=== PATIENT | female | born 1930 | race Caucasian/White ===

== ENCOUNTER 2018-03-10 02:27 | Observation (INO) ==
[2018-03-10] MEDS ORDERED: Aspirin 81 MG TAB.CHEW PO STA (02:46)
--- NOTE | 2018-03-10 02:46 | Emergency Department Note ---
Disposition Clinical Impression: Dyspnea Disposition: Admitted As Inpatient Condition: Good General Adult HPI - General Stated complaint: Difficulty Breathing Time Seen by Provider: 03/10/18 02:30 Source: family Mode of arrival: EMS Limitations: no limitations Nursing Notes Reviewed: Yes Vital Signs Reviewed: Yes - History of Present Illness HPI Narrative: Patient was brought in by EMS for shortness of breath that started tonight. The family does not afford the patient the opportunity to answer any questions when I am in the room. Daughter states that her shortness breath started this evening. She has not been eating well lately and is not having any chest pain. 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 Review of Systems: As Per HPI Constitutional: Denies: fever, chills, weakness, weight change Eyes: Denies: eye pain, eye discharge, vision change ENT ED: Denies: ear pain, throat pain, dental pain, hearing loss, epistaxis, congestion, dysphagia Cardiovascular: Denies: chest pain, palpitations, dyspnea on exertion, edema, syncope Respiratory: Reports: as per HPI, dyspnea Gastrointestinal: Denies: abdominal pain, nausea, vomiting, diarrhea, constipation, hematemesis, melena, hematochezia Genitourinary: Denies: dysuria, frequency, hematuria, discharge Musculoskeletal: Denies: back pain, neck pain, arthralgia, myalgia Integumentary: Denies: rash, abrasion, lesions Neurological: Denies: headache, weakness, numbness, paresthesias, confusion, abnormal gait, vertigo Psychiatric: Denies: anxiety, depression, suicidal thoughts, homicidal thoughts , auditory hallucinations, visual hallucinations Endocrine: Denies: fatigue Hematological/Lymphatic: Denies: easy bleeding, easy bruising Past Medical History - Past Medical History Attestation: Yes The following information was validated with the patient. Source: patient, nursing notes reviewed Medical history: Reports: hyperlipidemia, hypertension, thyroid disease Physical Exam - General Limitations: no limitations General appearance: alert, in no apparent distress - Head Head exam: atraumatic, normocephalic, normal inspection - Eye Eye exam: Present: normal appearance, PERRL, EOMI - ENT ENT exam: normal exam, normal oropharynx, mucous membranes moist - Neck Neck exam: Present: normal inspection, full ROM, trachea midline - Chest Chest inspection: Present: normal inspection, symmetric chest wall rise - Respiratory Respiratory exam: Present: normal lung sounds bilaterally. Absent: respiratory distress, wheezes, stridor, accessory muscle use, prolonged expiratory phase - Cardiovascular Cardiovascular exam: Present: regular rate, normal rhythm, normal heart sounds - Abdominal Exam Abdominal exam: Present: soft, Non-Tender. Absent: tenderness, distention, guarding, rebound, rigidity - Extremities Exam Extremities exam: Present: normal inspection, full ROM. Absent: tenderness, pedal edema - Back Exam Back exam: Present: normal inspection - Neurological Exam Neurological exam: Present: alert, oriented X3 - Psychiatric Psychiatric exam: Present: normal affect, normal mood - Skin Skin exam: Present: warm, dry, intact Course Vital Signs Temperature 98.5 F 03/10/18 02:42 Pulse Rate 71 03/10/18 02:42 Respiratory Rate 20 03/10/18 02:42 Blood Pressure 170/86 03/10/18 02:42 O2 Sat by Pulse Oximetry 100 03/10/18 02:42 Temperature 98.0 F 03/10/18 05:04 Pulse Rate 69 03/10/18 05:04 Respiratory Rate 19 03/10/18 05:04 Blood Pressure 168/86 03/10/18 05:10 O2 Sat by Pulse Oximetry 96 03/10/18 05:04 Oxygen Delivery Oxygen Delivery Nasal Cannula Medical Decision Making - MDM Narrative Medical decision making narrative: I reviewed the patient's medication list Discussed with Dr. Sanchez patient will be admitted under his care - Lab Data Lab results reviewed: Yes I reviewed the patient's lab results. Result diagrams: 03/10/18 02:50 03/10/18 02:50 Lab Results 03/10/18 03/10/18 03/10/18 Range/Units 02:50 02:50 02:50 WBC 6.6 (4.3-11.1) K/mcL RBC 4.49 (3.82-4.97) M/mcL Hgb 13.6 (11.5-15.4) g/dL Hct 39.7 (35.3-44.9) % MCV 88.4 (83.0-100.0) fL MCH 30.3 (28.0-33.3) pg MCHC 34.3 (31.6-35.5) g/dL RDW 13.2 (11.5-14.5) % Plt Count 194 (140-400) K/mcL MPV 9.7 (9.4-12.4) fL Immature Gran % 0.3 (0-4) % Seg Neutrophils % 51.9 % Lymphocytes % 37.3 % Monocytes % 7.3 % Eosinophils % 2.6 % Basophils % 0.6 % Neutrophils # 3.4 (1.6-8.9) K/mcL Lymphocytes # 2.4 (0.6-4.6) K/mcL Monocytes # 0.5 (0.0-1.3) K/mcL Eosinophils # 0.2 (0.0-0.6) K/mcL Basophils # 0.0 (0.0-0.2) K/mcL PT 10.8 (9.4-12.1) Seconds INR 1.0 APTT 31.3 (26.0-36.0) Seconds Sodium 142 (136-145) mEq/L Potassium 3.7 (3.5-5.1) mEq/L Chloride 104 (98-107) mEq/L Carbon Dioxide 27 (23-29) mEq/L BUN 7 L (8-23) mg/dL Creatinine 0.87 (0.60-1.20) mg/dL Est GFR ( Amer) > 60 (> 60) Est GFR (Non-Af Amer) > 60 (> 60) BUN/Creatinine Ratio 8 (6-26) Glucose 144 H (70-105) mg/dL Calculated Osmolality 295 (280-300) Calcium 10.4 H (8.6-10.3) mg/dL Total Bilirubin 0.7 (0.3-1.0) mg/dL AST 10 L (13-39) Units/L ALT 7 (7-52) Units/L Alkaline Phosphatase 61 (34-104) Units/L Troponin I < 0.03 (< 0.04) ng/mL Serum Total Protein 6.6 (6.4-8.9) g/dL Albumin 3.8 (3.5-5.7) g/dL Globulin 2.8 (2.4-3.5) g/dL Albumin/Globulin Ratio 1.4 (1.1-2.2) - Radiology Data Radiology results reviewed: Yes I reviewed the patient's radiology results. - EKG Data EKG #1 EKG attestation: Yes I reviewed and interpreted this EKG. EKG results narrative: EKG shows a probable sinus rhythm with a lot of artifact from a spinal stimulator. Rate is 70 bpm LA interval is 145 ms. QRS duration 85 ms. QTc interval 419 ms QTc interval 440 ms R axis -[address] elevation appreciated
[2018-03-10] MEDS ORDERED: 0.9 % Sodium Chloride 1,000 ML IVC SCH (03:00)
[2018-03-10 03:04] LABS: Basophils % 0.6 %; Eosinophils # 0.2 K/mcL (0.0-0.6); Eosinophils % 2.6 %; Hematocrit 39.7 % (35.3-44.9); Hemoglobin 13.6 g/dL (11.5-15.4); Immature Granulocytes % 0.3 % (0-4); Lymphocytes # 2.4 K/mcL (0.6-4.6); Lymphocytes % 37.3 %; Mean Corpuscular HGB Conc 34.3 g/dL (31.6-35.5); Mean Corpuscular Hemoglobin 30.3 pg (28.0-33.3); Mean Corpuscular Volume 88.4 fL (83.0-100.0); Mean Platelet Volume 9.7 fL (9.4-12.4); Monocytes # 0.5 K/mcL (0.0-1.3); Monocytes % 7.3 %; Neutrophils # 3.4 K/mcL (1.6-8.9); Platelet Count 194 K/mcL (140-400); Red Blood Count 4.49 M/mcL (3.82-4.97); Red Cell Distribution Width 13.2 % (11.5-14.5); Segmented Neutrophils % 51.9 %
[2018-03-10 03:08] LABS: Prothrombin Time 10.8 Seconds (9.4-12.1)
[2018-03-10 03:11] LABS: Activated Partial Thrombo Time 31.3 Seconds (26.0-36.0)
[2018-03-10 03:19] LABS: Alanine Aminotransferase 7 Units/L (7-52); Albumin 3.8 g/dL (3.5-5.7); Albumin/Globulin Ratio 1.4 (1.1-2.2); Alkaline Phosphatase 61 Units/L (34-104); Aspartate Amino Transferase 10 Units/L (13-39); BUN/Creatinine Ratio 8 (6-26); Bilirubin,Total 0.7 mg/dL (0.3-1.0); Blood Urea Nitrogen 7 mg/dL (8-23); Calcium 10.4 mg/dL (8.6-10.3); Carbon Dioxide 27 mEq/L (23-29); Chloride 104 mEq/L (98-107); Globulin 2.8 g/dL (2.4-3.5); Glucose 144 mg/dL (70-105); Osmolality,Calculated 295 (280-300); Potassium 3.7 mEq/L (3.5-5.1); Sodium 142 mEq/L (136-145); Total Protein 6.6 g/dL (6.4-8.9); Troponin I < 0.03 ng/mL (< 0.04); eGFR For Non-African Americans > 60 (> 60)
[2018-03-10] MEDS ORDERED: Naloxone 0.4 MG/ML INJ IVP PRN (04:47)
[2018-03-10] MEDS ORDERED: Ondansetron 4 MG/2 ML VIAL IVP PRN (06:19)
[2018-03-10] MEDS ORDERED: cloNIDine HCl 0.1 MG TABLET PO PRN (08:01)
[2018-03-10] MEDS ORDERED: Nitroglycerin 0.4 MG TAB.SUBL SL PRN (08:03)
[2018-03-10] MEDS: Gabapentin 400 MG CAPSULE PO SCH ×2 (08:15→20:32)
[2018-03-10] MEDS: amLODIPine 5 MG TABLET PO SCH (08:15)
[2018-03-10] MEDS: 0.9 % Sodium Chloride 1,000 ML IVC SCH (11:35)
--- NOTE | 2018-03-10 12:07 | Internal Med History&Physical ---
Date of Encounter: 03/10/18 Time of Encounter: 09:20 Assessment and Plan (1) Dyspnea Current visit: Yes Status: Acute This is atypical and could be coronary disease. It is enough so that we will try to have Dr. Mckinney, her boom conveyor operator, see her before discharge. Further management will be based on his opinion. I think she should have stress test at some point. Qualifiers: Dyspnea type: unspecified Qualified Code(s): R06.00 - Dyspnea, unspecified (2) Hypertension Current visit: Yes Status: Acute This is mostly controlled but at time she has been slightly hypertensive. Will follow. Qualifiers: Hypertension type: essential hypertension Qualified Code(s): I10 - Essential (primary) hypertension (3) Hyperlipidemia Current visit: Yes Status: Acute We will continue home regimen. Qualifiers: Hyperlipidemia type: unspecified Qualified Code(s): E78.5 - Hyperlipidemia , unspecified (4) DVT prophylaxis Current visit: Yes Status: Acute Will treat her with Lovenox, while here only. (5) Hypothyroidism Current visit: Yes Status: Acute Clinically euthyroid and will continue home regimen. Qualifiers: Hypothyroidism type: unspecified Qualified Code(s): E03.9 - Hypothyroidism , unspecified Internal Medicine - H&P: HPI Chief complaint: Shortness of breath Admitted From: Home Plans for Post Hospital Care: Home History of present illness: Ms. Reed is a 87 year old female with history of dizziness, irregularly for the last couple of weeks. She is more concerned that she has progressive episodes of chest tightness that feels like someone has a bag over her head and is not able to breathe. She is not complaining of chest pain or palpitations, fevers chills or sweats, other changes. Early this morning, this began at home and then she had another episode while here. When offered nitroglycerin she stated that her symptoms had resolved. EKG at that time was unremarkable. Troponins have been negative. Her last troponin should be back anytime. She has minimal smoking history, less than one half pack per day and not for decades. She was around secondary smoke with her . She has hypertension and hyperlipidemia but no other cardiac risk factors, other than age. She has diminished memory and so history is somewhat unreliable but lives with her daughter who helps with history. Onset of current episode was severe and occurred in the middle of the night, approximately 2 AM. She is not known to have diaphoresis but home oxygen left over from her was not helpful in relieving her symptoms. Past medical history as noted below. She has 18 years of hypothyroidism. This was apparently checked about a week ago by her primary physician and was found to be normal. Past Med Surg Social Fam HX - Past Medical History Medical history: hyperlipidemia, hypertension, thyroid disease Additional medical history: Non-Hodgkin's lymphoma 7 years remission Psychiatric history: no psych history - Past Surgical History Surgical History: hysterectomy, other Additional surgical history: Spinal Stimulator in L Hip - Social History Smoking Status: Never smoker Alcohol use: none Drug use: none - Family History Mother Living Status: Hx Family Musculoskeletal Disorders: Yes Father Living Status: Hx Family Cardiac Disorders: Yes Internal Medicine - H&P: Meds Amlodipine Besylate 2.5 mg PO DAILY 03/10/18 [History] Gabapentin [Neurontin] 400 mg PO BID 03/10/18 [History] Levothyroxine [Synthroid] 75 mcg PO DAILY 03/10/18 [History] Lovastatin 40 mg PO DAILY 03/10/18 [History] 3 Allergy/AdvReac Type Severity Reaction Status Date / Time Penicillins [PCN] Allergy Hives Verified 03/10/18 02:40 All Systems PM: The patient wears eyeglasses. She has oxygen which is from her , which she occasionally uses one dyspneic, at home. Her had lung problems and about 5 years ago. Patient has no complaint of chest discomfort, dyspnea, orthopnea, breathing problems, palpitations, nausea or vomiting, constipation or diarrhea, other changes in bowel habits, heartburn, difficulty with urination, kidney problems or kidney stones, fevers chills or sweats, rash or itching, seizures, headache or lightheadedness, heat or cold intolerance, blood problems or anemia, or other new complaints, except as mentioned above. Review of systems is otherwise negative. - Constitutional Vitals: Temp Pulse Resp BP Pulse Ox 98.0 F 68 17 124/60 98 03/10/18 11:50 03/10/18 11:50 03/10/18 11:50 03/10/18 11:50 03/10/18 11:50 Exam: Examination: (Except as mentioned above): General: In no apparent distress, alert and oriented 3. She is on 1 L by nasal cannula of oxygen. Head: Atraumatic and normocephalic. Eyes: Extraocular muscles are intact, pupils equal round and reactive to light and accommodation. Sclerae anicteric. Ears: External ears are normal to inspection and hearing is grossly normal. Nose: Patent without lesion noted. Mouth: No intraoral lesions seen. Dentition is unremarkable. Neck: Supple with trachea midline. There is no thyromegaly or adenopathy and carotids are 2+ without bruit heard. Respiratory: No use of accessory muscles. Lungs are clear throughout. Normal airflow. Cardiovascular: Regular rate and rhythm without murmur appreciated. Abdomen: Bowel sounds are normal. No hepatosplenomegaly masses or tenderness. Obese and therefore difficult to palpate deeply. Extremities: No cyanosis clubbing or edema. Neurological: A and O 3. Cranial nerves II through XII are intact. No focal deficits and no abnormal movements or postures. Skin: Warm and non-diaphoretic with no lesions noted. Breasts, pelvic and rectal: Not examined. Internal Med - H&P Results - Labs CBC & Chem 7: 03/10/18 02:50 03/10/18 02:50 Labs: Cardiac Enzymes 03/10/18 03/10/18 Range/Units 06:19 09:53 Troponin I < 0.03 < 0.03 (< 0.04) ng/mL
[2018-03-10] MEDS ORDERED: *HR* Enoxaparin 40 MG/0.4 ML SYRINGE SQ SCH (16:00)
[2018-03-11] MEDS: Gabapentin 400 MG CAPSULE PO SCH (09:25)
[2018-03-11] MEDS: amLODIPine 5 MG TABLET PO SCH (09:25)
--- NOTE | 2018-03-11 13:31 | Discharge Summary ---
Addendum entered and electronically signed by Angus Sanchez MD 03/11/18 15:27: Daughter had questions about taking the patient home. She was concerned because she seems to have more memory difficulties. I explained that we have found no reason for this other than progressive dementia. I told the daughter she suddenly gets worse to bring her back to the emergency room. I explained again to the daughter about nitroglycerin and use thereof and nursing no stream force this. Addendum entered and electronically signed by Angus Sanchez MD 03/11/18 14 :22: I have personally performed a face to face evaluation on this patient. I have reviewed and agree with the care plan. History and Exam by me shows: Patient is without recurrence of chest discomfort or dyspnea overnight. Plan is to follow with Dr. Mckinney, cardiology, after discharge. She is to have a 24-hour or 48-hour Holter as well as a chemical stress test (because of her left hip pain). She continues to have memory issues. Discussed care with other providers and/or nursing. Patient has no complaint of chest discomfort, dyspnea, orthopnea, palpitations, nausea or vomiting, constipation or diarrhea, other changes in bowel habits, difficulty with urination, rash or itching, or other new complaints, except as mentioned above. Review of systems is otherwise negative. Examination: (Except as mentioned above): General: In no apparent distress. Alert and oriented 3. Nondiaphoretic. Head: Atraumatic and normocephalic. Respiratory: No use of accessory muscles. Lungs are clear throughout. Normal airflow. Cardiovascular: Regular rate and rhythm without murmur appreciated. Abdomen: Bowel sounds are normal. No hepatosplenomegaly mass or tenderness appreciated. Extremities: No cyanosis clubbing or edema. Skin: Warm and non-diaphoretic with no new lesions noted. Family and patient understand the need to use nitroglycerin and to call squad if not relieved by third dose, every 5 minutes. Original Note: - NOTES TO OUTPATIENT PROVIDER Notes to Outpatient Provider: to have chemical stress test and holter monitor as out patient. will follow up with trade specialist, Dr Mckinney. Date of Encounter: 03/11/18 Time of Encounter: 13:28 - Discharge Diagnosis (1) Dyspnea Priority: Primary Status: Acute Comments: stable. Will have chemical stress test and Holter monitor as outpatient. To follow up with cardiology, Dr. Mckinney. Qualifiers: Dyspnea type: unspecified Qualified Code(s): R06.00 - Dyspnea, unspecified (2) Hypertension Priority: Secondary Status: Acute Comments: Controlled with current medications. Follow up with PCP. Qualifiers: Hypertension type: essential hypertension Qualified Code(s): I10 - Essential (primary) hypertension (3) Hypothyroidism Priority: Secondary Status: Acute Comments: Continue current medication. Follow up with PCP. Qualifiers: Hypothyroidism type: unspecified Qualified Code(s): E03.9 - Hypothyroidism, unspecified Hospital course: Ms. Reed is a 87 year old female discharging to home after being admitted with difficulty breathing. Patient has been stable. To receive chemical stress test and Holter monitor as outpatient.. To follow up with cardiology, Dr. Mckinney. Discharge discussed with: patient, family, nurse, social work - Time Spent with Patient Total time spent providing and/or coordinating discharge services: Less than 30 minutes - Discharge Medications Home Medications: Amlodipine Besylate 2.5 mg PO DAILY 03/10/18 [History] Gabapentin [Neurontin] 400 mg PO BID 03/10/18 [History] Levothyroxine [Synthroid] 75 mcg PO DAILY 03/10/18 [History] Lovastatin 40 mg PO DAILY 03/10/18 [History] Nitroglycerin 0.4 mg SL Q5MIN PRN #25 tab.subl 03/11/18 [Rx] Allergies/Adverse Reactions: Allergy/AdvReac Type Severity Reaction Status Date / Time Penicillins [PCN] Allergy Hives Verified 03/10/18 02:40 Date of admission: 03/10/18 04:25 Primary care physician: Nikhil Jeffers Consults: 03/10/18 12:06 Consult to Cardiology [CONS] Routine Comment: Consulting Provider: Cardiology Maura Reason for Consult: Dyspnea - Cardiac Equivalet? Call Completed: No Discharging clinician: Angus Sanchez Anticipated date of discharge: 03/11/18 - Constitutional Vitals: Temp Pulse Resp BP Pulse Ox 98.7 F 63 18 120/57 95 03/11/18 07:00 03/11/18 07:00 03/11/18 07:00 03/11/18 07:00 03/11/18 07:00 - Patient Status Disposition: Home, Self-Care Condition: Good Functional capacity at discharge: uses cane/walker Overall status at discharge: patient is progressing back to baseline - Discharge Instructions Forms: ED Satisfaction Letter - Diet and Activity Activity: as per physical therapy Diet: advance to your usual diet
--- NOTE | 2018-03-11 13:51 | Electrocardiograph Report ---
[address] [address] Test Date: 2018-03-10 Pat Name: Milena Reed Department: 2001 Room: 112 Gender: F Insurance Case Manager: : 1930 Requested By: Angus Sanchez Order Number: [id number] Xiomara MD: Alma Delia Manzo Measurements Intervals [place] Rate: 72 P: 165 IN: 278 QRS: -20 QRSD: 86 T: 6 QT: 412 QTc: 436 Interpretive Statements ARTIFACT LIMITS INTERPRETATION Electronically Signed On 03-11-2018 13:49:47 EDT by Alma Delia Manzo
--- NOTE | 2018-03-11 14:01 | Electrocardiograph Report ---
[place] [address] Test Date: 2018-03-10 Pat Name: Milena Reed Department: 2000 Room: 112 Gender: F Peace Officer: : 1930 Requested By: Thiago Call Order Number: [id number] Xiomara MD: Alma Delia Manzo Measurements Intervals [place] Rate: 70 P: -18 [place]: 145 QRS: -29 QRSD: 85 T: -14 QT: 419 QTc: 440 Interpretive Statements BASELINE ARTIFACT LIMITS INTERPRETATION Electronically Signed On 03-11-2018 14:00:35 EDT by Alma Delia Manzo
[2018-03-11 14:02] VITALS: BP 125/63
[2018-03-11] MEDS: 0.9 % Sodium Chloride 1,000 ML IVC SCH (14:27)
[2018-03-11] MEDS ORDERED: 0.9 % Sodium Chloride 1,000 ML IV.SOLN IV ONE (15:40)
[2018-03-11] MEDS ORDERED: Gabapentin 400 MG CAPSULE PO ONE (15:40)
[2018-03-11] MEDS ORDERED: amLODIPine 5 MG TABLET PO ONE (15:40)
== END 2018-03-11 15:41 | disposition home or self-care (01) ==
LOC: EMEROOGRE 02:27 → INPGRE 02:27

== ENCOUNTER 2018-03-25 19:20 | Observation (INO) ==
[2018-03-25] MEDS ORDERED: Nitroglycerin 1 INCH/GM PACKET TP ONE (19:40)
--- NOTE | 2018-03-25 19:43 | Emergency Department Note ---
Disposition Clinical Impression: Shortness of breath Chest pain Qualifiers: Chest pain type: unspecified Qualified Code(s): R07.9 - Chest pain, unspecified Disposition: Admitted As Inpatient Condition: Good Referrals: NONE,PCP [Non-Partnered Physician] - Chest Pain HPI - General Stated Complaint: difficulty breathing Time Seen by Provider: 03/25/18 19:27 Source: patient, family (Daughter) Mode of arrival: EMS Limitations: no limitations Vital Signs Reviewed: Yes Nursing Notes Reviewed: Yes - History of Present Illness HPI Narrative: 87-year-old female percents for evaluation of tightness to her chest. Patient felt this tightness come on earlier this afternoon. She was given oxygen with no significant improvement, so a life squad was called. Patient was recently hospitalized for similar symptoms 2 weeks ago and had a negative evaluation at that time. A stress test was ordered but was never performed at time of admiss ion or since discharge. Patient has no known coronary artery disease. Patient was given oxygen from her who had lung issues that she does not require all the time. She has no history of lung disorder. She denies any history of congestive heart failure. - Related Data Home Medications Medication Instructions Recorded Confirmed Amlodipine Besylate 2.5 mg PO DAILY 03/10/18 03/25/18 Gabapentin [Neurontin] 400 mg PO BID 03/10/18 03/25/18 Levothyroxine [Synthroid] 75 mcg PO DAILY 03/10/18 03/25/18 Lovastatin 40 mg PO DAILY 03/10/18 03/25/18 Previous Rx's Medication Instructions Recorded Nitroglycerin 0.4 mg SL Q5MIN PRN #25 tab.subl 03/11/18 Allergies Allergy/AdvReac Type Severity Reaction Status Date / Time Penicillins [PCN] Allergy Hives Verified 03/25/18 19:38 Review of Systems: Constitutional: [Negative for fever and chills.] HENT: [Negative for congestion.] Eyes: [Negative for discharge.] Respiratory: see History of present illness Cardiovascular: See history of present illness Gastrointestinal: [Negative for nausea, vomiting, abdominal pain and diarrhea.] Endocrine: [Negative for excessive thirst,urination] Genitourinary: [Negative for dysuria and frequency.] Musculoskeletal: [Negative for myalgias and arthralgias.] Skin: [Negative for rash.] Neurological: [Negative for dizziness, localized weakness and headaches.] Psychiatric/Behavioral: [Negative for nervous/anxious.] All other systems reviewed and are negative. Chest Pain PMH - Past Medical History Medical history: Reports: hyperlipidemia, hypertension, thyroid disease Surgical history: Reports: hysterectomy, other Psychiatric history: Reports: no psych history - Social History Smoking Status: Never smoker Alcohol use: Reports: none Drug use: Reports: none Physical Exam Constitutional: Patient is [alert], elderly, appears somewhat mentally slowed, and cooperative. . The patient appears [nontoxic, and does not appear acutely ill]. HENT: Head: Normocephalic and atraumatic. Right Ear: External ear normal. Left Ear: External ear normal. Nose: Nose normal. Mouth/Throat: Oropharynx is clear and mucous membranes show [good hydration.] Eyes: Conjunctivae and EOM are normal. Pupils are equal, round, and reactive to light. Right eye exhibits [no] discharge. Left eye exhibits [no] discharge. Neck: Trachea is midline, normal range of motion and [phonation normal]. Neck supple. Cardiovascular: [Regular rhythm], S1 normal, S2 normal, normal heart sounds and intact distal pulses. Exam reveals no gallop and no friction rub. No murmur heard. [Capillary refill is brisk.] [Peripheral pulses are 2+] Pulmonary/Chest: Effort [normal] No stridor. [No] tachypnea. [No] respiratory distress. There are [no] decreased breath sounds. [There no wheezes, no rhonchi, or rales.] Abdominal: Soft. [Bowel sounds are normal]. There exhibits [no] distension and [no] mass. There is no hepatosplenomegaly. There is [no tenderness], [no] CVA tenderness. There is [no rigidity, no rebound, no guarding]. Musculoskeletal: Normal range of motion of uninvolved extremities. There exhibits [no edema]. [ ] Neurological: Patient is alert. Patient displays no atrophy and no tremor. No cranial nerve deficit and exhibits normal muscle tone. Coordination normal grossly. Skin: Skin is warm and dry. No erythema. No rash noted. Psychiatric: Patient has a depressed mood and affect Course Course Narrative: Patient had mission 2 weeks ago for similar symptoms but did not get follow-up stress test as originally planned. Her symptom complex again has reoccurred without any objective evidence today of cardiac disease. She will be again ruled out for cardiac disease and then stress testing and I think there is an element of dementia with paranoid ideations and anxiety that may be precipitating these episodes. Patient was discussed with hospitalist Dr. Jurado who agrees with admission Vital Signs Temperature 98.7 F 03/25/18 19:39 Pulse Rate 66 03/25/18 19:39 Respiratory Rate 20 03/25/18 19:39 Blood Pressure 154/77 03/25/18 19:39 O2 Sat by Pulse Oximetry 99 03/25/18 19:39 Temperature 98.7 F 03/25/18 19:39 Pulse Rate 56 03/25/18 20:43 Respiratory Rate 14 03/25/18 20:43 Blood Pressure 136/78 03/25/18 20:43 O2 Sat by Pulse Oximetry 98 03/25/18 20:43 Oxygen Delivery Oxygen Delivery Nasal Cannula Chest Pain - MDM Narrative Medical decision making narrative: Initial differential diagnosis would include ACUTE CORONARY SYNDROME, THORACIC AORTIC DISSECTION, PNEUMOTHORAX, PNEUMONIA, HEMOTHORAX, ESOPHAGEAL RUPTURE, OR PERICARDIAL TAMPONADE, and pulmonary embolus. Also, there is no evidence of sepsis or toxicity, thus I consider the discharge disposition reasonable. I have discussed the diagnosis and risks, and we agree with discharging home to follow-up with their primary doctor and returning for any worsening or new symptoms develop. - Lab Data Lab results reviewed: Yes I reviewed the patient's lab results. Result diagrams: 03/25/18 19:59 03/25/18 19:59 Lab Results 03/25/18 03/25/18 03/25/18 Range/Units 19:59 19:59 19:59 WBC 8.0 (4.3-11.1) K/mcL RBC 4.47 (3.82-4.97) M/mcL Hgb 13.6 (11.5-15.4) g/dL Hct 38.9 (35.3-44.9) % MCV 87.0 (83.0-100.0) fL MCH 30.4 (28.0-33.3) pg MCHC 35.0 (31.6-35.5) g/dL RDW 13.0 (11.5-14.5) % Plt Count 206 (140-400) K/mcL MPV 9.8 (9.4-12.4) fL Immature Gran % 0.4 (0-4) % Seg Neutrophils % 58.1 % Lymphocytes % 30.6 % Monocytes % 8.0 % Eosinophils % 2.1 % Basophils % 0.8 % Neutrophils # 4.6 (1.6-8.9) K/mcL Lymphocytes # 2.4 (0.6-4.6) K/mcL Monocytes # 0.6 (0.0-1.3) K/mcL Eosinophils # 0.2 (0.0-0.6) K/mcL Basophils # 0.1 (0.0-0.2) K/mcL PT 10.8 (9.4-12.1) Seconds INR 1.0 APTT 28.7 (26.0-36.0) Seconds Sodium 138 (136-145) mEq/L Potassium 3.1 L (3.5-5.1) mEq/L Chloride 101 (98-107) mEq/L Carbon Dioxide 25 (23-29) mEq/L BUN 11 (8-23) mg/dL Creatinine 0.91 (0.60-1.20) mg/dL Est GFR ( Amer) > 60 (> 60) Est GFR (Non-Af Amer) 59 L (> 60) BUN/Creatinine Ratio 12 (6-26) Glucose 125 H (70-105) mg/dL Calculated Osmolality 287 (280-300) Calcium 10.2 (8.6-10.3) mg/dL Troponin I < 0.03 (< 0.04) ng/mL B-Natriuretic Peptide (Less than 100) pg/mL 03/25/18 Range/Units 19:59 WBC (4.3-11.1) K/mcL RBC (3.82-4.97) M/mcL Hgb (11.5-15.4) g/dL Hct (35.3-44.9) % MCV (83.0-100.0) fL MCH (28.0-33.3) pg MCHC (31.6-35.5) g/dL RDW (11.5-14.5) % Plt Count (140-400) K/mcL MPV (9.4-12.4) fL Immature Gran % (0-4) % Seg Neutrophils % % Lymphocytes % % Monocytes % % Eosinophils % % Basophils % % Neutrophils # (1.6-8.9) K/mcL Lymphocytes # (0.6-4.6) K/mcL Monocytes # (0.0-1.3) K/mcL Eosinophils # (0.0-0.6) K/mcL Basophils # (0.0-0.2) K/mcL PT (9.4-12.1) Seconds INR APTT (26.0-36.0) Seconds Sodium (136-145) mEq/L Potassium (3.5-5.1) mEq/L Chloride (98-107) mEq/L Carbon Dioxide (23-29) mEq/L BUN (8-23) mg/dL Creatinine (0.60-1.20) mg/dL Est GFR ( Amer) (> 60) Est GFR (Non-Af Amer) (> 60) BUN/Creatinine Ratio (6-26) Glucose (70-105) mg/dL Calculated Osmolality (280-300) Calcium (8.6-10.3) mg/dL Troponin I (< 0.04) ng/mL B-Natriuretic Peptide 46 (Less than 100) pg/mL - Radiology Data Radiology results reviewed: Yes I reviewed the patient's radiology results. FINDINGS: Neurostimulator leads are identified terminating in the upper thoracic spine. Diffuse osteopenia. No focal consolidation, pleural effusion or pneumothorax. The cardiomediastinal silhouette is stable. No overt pulmonary edema. The osseous structures are stable. Emphysematous changes. XR/XR chest 2V IMPRESSION: No new acute cardiopulmonary findings. Stable exam. - EKG Data EKG attestation: Yes I reviewed and interpreted this EKG. EKG shows normal: sinus rhythm, axis, intervals, QRS complexes, ST-T waves Interpretation: normal EKG Heart Score - Score History: Slightly Suspicious EKG: Normal Age: Greater than 65 Risk Factors: 1-2 risk factors Troponin: Less than normal limit HEART Score Total: 3
[2018-03-25] MEDS ORDERED: *HR* LORazepam 2 MG/ML VIAL IM ONE (19:49)
[2018-03-25] MEDS ORDERED: Ondansetron ODT 4 MG TAB.RAPDIS SL ONE (20:00)
[2018-03-25 20:03] LABS: Basophils # 0.1 K/mcL (0.0-0.2); Basophils % 0.8 %; Eosinophils # 0.2 K/mcL (0.0-0.6); Eosinophils % 2.1 %; Hematocrit 38.9 % (35.3-44.9); Hemoglobin 13.6 g/dL (11.5-15.4); Immature Granulocytes % 0.4 % (0-4); Lymphocytes # 2.4 K/mcL (0.6-4.6); Lymphocytes % 30.6 %; Mean Corpuscular Hemoglobin 30.4 pg (28.0-33.3); Mean Platelet Volume 9.8 fL (9.4-12.4); Monocytes # 0.6 K/mcL (0.0-1.3); Neutrophils # 4.6 K/mcL (1.6-8.9); Platelet Count 206 K/mcL (140-400); Red Blood Count 4.47 M/mcL (3.82-4.97); Segmented Neutrophils % 58.1 %
[2018-03-25 20:10] LABS: Prothrombin Time 10.8 Seconds (9.4-12.1)
[2018-03-25 20:13] LABS: Activated Partial Thrombo Time 28.7 Seconds (26.0-36.0)
[2018-03-25 20:21] LABS: BUN/Creatinine Ratio 12 (6-26); Blood Urea Nitrogen 11 mg/dL (8-23); Calcium 10.2 mg/dL (8.6-10.3); Carbon Dioxide 25 mEq/L (23-29); Chloride 101 mEq/L (98-107); Glucose 125 mg/dL (70-105); Osmolality,Calculated 287 (280-300); Potassium 3.1 mEq/L (3.5-5.1); Sodium 138 mEq/L (136-145); eGFR For Non-African Americans 59 (> 60)
[2018-03-25 20:27] LABS: Troponin I < 0.03 ng/mL (< 0.04)
[2018-03-25] MEDS ORDERED: Ondansetron ODT 4 MG TAB.RAPDIS SL PRN (22:44)
[2018-03-25] MEDS ORDERED: *HR* LORazepam 0.5 MG TABLET PO PRN (22:46)
[2018-03-25] MEDS ORDERED: Nitroglycerin 1 INCH/GM PACKET TP PRN (22:47)
[2018-03-25] MEDS: Gabapentin 400 MG CAPSULE PO SCH (22:59)
[2018-03-26] MEDS: Gabapentin 400 MG CAPSULE PO SCH (08:23)
[2018-03-26] MEDS ORDERED: Aspirin 81 MG TAB.CHEW PO SCH (09:00)
[2018-03-26] MEDS ORDERED: amLODIPine 5 MG TABLET PO SCH (09:00)
--- NOTE | 2018-03-26 11:55 | Internal Med History&Physical ---
Date of Encounter: 03/26/18 Time of Encounter: 11:52 Assessment and Plan (1) Chest pain Current visit: Yes Status: Acute Patient was admitted for rule out [place] after presented to emergency department with complaints of shortness of breath with chest pressure. Patient's symptoms soon resolved after treatment in the emergency department. Patient denies any recurrence of symptoms since her admission. Troponins 2 have been negative with the troponin pending. EKG 2 has been negative. Patient had similar symptoms 2 weeks prior with cardiac workup showing negative. Patient has been waiting to have a outpatient stress test performed, but according to family scheduling has been delayed due to insurance. Family stating concerns about increased anxiety while at home and states that they believe patient has been having panic attacks. Patient currently appears relaxed and denies any current issues. Patient does confirm that she does have a history of anxiety. Qualifiers: Chest pain type: unspecified Qualified Code(s): R07.9 - Chest pain, unspecified (2) Anxiety Current visit: Yes Status: Chronic Patient states history of anxiety which is confirm per family. Family states the patient has had panic attacks and believes that this may be related to this episode of dyspnea with chest pressure. Patient currently on when necessary Ativan and currently appears relaxed. We will continue to monitor. Patient does live with one daughter. (3) Hypertension Current visit: Yes Status: Chronic Vital signs stable. We will continue with current medications. Qualifiers: Hypertension type: essential hypertension Qualified Code(s): I10 - Essential (primary) hypertension Internal Medicine - H&P: HPI Chief complaint: chest pressure Admitted From: Home Plans for Post Hospital Care: Home History of present illness: Ms. Reed is a 87 year old female, who was admitted to the emergency department yesterday after experiencing shortness of breath and a chest heaviness. Patient had a similar incident approximately 2 weeks ago during which time she was ruled out for any cardiac issues but continues to have a outpatient stress test pending. Patient states that her symptoms were worrisome were yesterday during which time she became short of breath and felt a chest heaviness. Patient and family confirmed patient does have issues with anxiety and patient states when she felt short of breath she became very anxious. Patient denies any actual chest pain or radiation of any pain. Patient denies any fever/chills or productive cough. Patient does confirm that she becomes fatigued after ambulating greater than 30-40 feet but denies any dyspnea. Patient denies any syncopal type symptoms or palpitations during this event. Patient states she has slight orthopnea and requires a however bed to be elevated. Patient had an EKG that was performed in the emergency department showed no acute process. Patient's troponins 2 which have been negative. Patient has had EKGs done in the emergency department and this morning which showed sinus rhythm with no ectopy and no signs of ischemia. Currently patient appears relaxed and denies any discomforts or shortness of akash ath. Patient's son approached me after leaving the room stating that family has had concerns about patient with anxiety. States that patient has had episodes of anxiety in the past and feels patient may have experienced a panic attack. Past Med Surg Social Fam HX - Past Medical History Source: patient, old records reviewed Medical history: hyperlipidemia, hypertension, thyroid disease Additional medical history: nonhodgkins lymphoma Psychiatric history: no psych history, anxiety - Past Surgical History Surgical History: hysterectomy, other Additional surgical history: hernia, tonselectomy, spinal simulator - Social History Smoking Status: Former smoker Smokeless Tobacco Status: Yes Alcohol use: none Drug use: none - Family History Mother Living Status: Father Living Status: Hx Family Cardiac Disorders: Yes Internal Medicine - H&P: Meds Amlodipine Besylate 2.5 mg PO DAILY 03/10/18 [History] Gabapentin [Neurontin] 400 mg PO BID 03/10/18 [History] Levothyroxine [Synthroid] 75 mcg PO DAILY 03/10/18 [History] Lovastatin 40 mg PO DAILY 03/10/18 [History] Nitroglycerin 0.4 mg SL Q5MIN PRN #25 tab.subl 03/11/18 [Rx] Allergy/AdvReac Type Severity Reaction Status Date / Time Penicillins [PCN] Allergy Hives Verified 03/25/18 19:38 All Systems PM: A 10-system review of systems was performed and is negative for pertinent findings except as documented above in the HPI. - Constitutional Constitutional: no chills, no fever(s), no night sweats - EENT Eyes: no change in vision, no discharge, no pain, no photophobia Ears: no ear discharge, no ear pain, no tinnitus Nose, mouth and throat: no dysphagia, no nasal discharge, no neck pain, no sore throat - Cardiovascular Cardiovascular ROS IM: as per HPI, no chest pain, no diaphoresis, no dyspnea, no lightheadedness, no palpitations, no syncope - Respiratory Respiratory: as per HPI, no cough, no dyspnea, no wheezing, no excessive phlegm production - Gastrointestinal Gastrointestinal: as per HPI, no abdominal pain, no diarrhea, no hematemesis, no hematochezia, no melena, no nausea, no vomiting - Genitourinary Genitourinary: as per HPI, no change in urinary stream, no dysuria, no flank pain, no hematuria - Musculoskeletal Musculoskeletal ROS IM: no numbness, no tingling - Integumentary Integumentary IM: no rash, no unusual bruising - Neurological Neurological ROS: no confusion, no convulsions, no focal weakness, no numbness, no tingling, no tremor(s) - Hematologic/Lymphatic Hematologic/Lymphatic: no easy bruising - Constitutional Vitals: Temp Pulse Resp BP Pulse Ox 98.1 F 84 16 101/56 97 03/26/18 07:56 03/26/18 07:56 03/26/18 07:56 03/26/18 07:56 03/26/18 07:56 General appearance: Present: A&O X 3, pleasant - Head Head exam: Present: atraumatic, normocephalic - Eye Eye exam: Present: PERRL, conjuntiva pink, sclera anicteric Pupils: Present: PERRL - Neck Neck exam general surgery: Present: supple, trachea midline. Absent: lymphadenopathy - Respiratory Respiratory exam: Present: CTAB. Absent: accessory muscle use, rales, rhonchi, wheezes Additional comments: Lungs are clear throughout upper [place] with noted fine posterior bibasilar rales. History effort is relaxed. No productive cough noted. - Cardiovascular Cardiovascular exam: Present: RRR, +S1, +S2. Absent: diastolic murmur, gallop, rubs, systolic murmur Additional comments: personnel monitor showing sinus rhythm with no ectopy or pauses. - GI/Abdominal GI/Abdominal exam: Present: normal bowel sounds, soft, no peritoneal signs. Absent: distended, tenderness - Extremities Exam Extremities exam: Present: warm, radial pulses palpable and symmetrical. Absent: calf tenderness, cyanotic, pedal edema - Neurological Exam Neurological exam: Present: CN II-XII intact, oriented X3, no focal deficits. Absent: pronater drift, facial droop, speech deficit - Skin Skin exam: Present: dry, intact Internal Med - H&P Results - Labs CBC & Chem 7: 03/25/18 19:59 03/25/18 19:59 Labs: Short CBC 03/25/18 Range/Units 19:59 WBC 8.0 (4.3-11.1) K/mcL Hgb 13.6 (11.5-15.4) g/dL Hct 38.9 (35.3-44.9) % Plt Count 206 (140-400) K/mcL Neutrophils # 4.6 (1.6-8.9) K/mcL BMP 03/25/18 19:59 Sodium 138 Potassium 3.1 L Chloride 101 Carbon Dioxide 25 BUN 11 Creatinine 0.91 Glucose 125 H Calcium 10.2 Cardiac Enzymes 03/25/18 03/26/18 Range/Units 19:59 04:33 Troponin I < 0.03 < 0.03 (< 0.04) ng/mL - Impressions ITS Impressions Chest X-Ray 03/25/18 19:40 IMPRESSION: No new acute cardiopulmonary findings. Stable exam. D/ / Corina Rodriguez MD / Corina Rodriguez MD Interpreting Provider: Corina Rodriguez MD
[2018-03-26 12:23] VITALS: BP 107/62
--- NOTE | 2018-03-26 14:18 | Discharge Summary ---
Orders not resulted at time of discharge: Pending orders 03/26/18 06:00 ECG 12 lead ECG [ECG] AM 0600 03/26/18 08:00 ECG 12 lead ECG [ECG] 0800 Date of Encounter: 03/26/18 Time of Encounter: 14:14 - Discharge Diagnosis (1) Chest pain Priority: Primary Status: Acute Comments: Patient was admitted to this facility for rule out [place] echo presented to emergency department with complaints of shortness of breath and chest pressure. Patient had troponins 3 which were all negative. Patient had EKG 2 which was negative. Chest x-ray showed no acute process. Patient denied any further complaints of chest discomforts or shortness of breath after her admission from emergency department. Today patient states that she feels fine. Patient acknowledges a history of anxiety and family has a process with concerns about patient with possible panic attacks. Patient will be discharged with a prescription of low-dose Ativan when necessary until seen by her PCP. Patient will be discharged to home and is to follow with her round boner and PCP. Patient had a similar incident approximately 2 weeks prior which all cardiac diagnostics were negative. Patient at that time was scheduled for a outpatient stress test which continues to be pending. Patient is to have her stress test performed after discharge. Qualifiers: Chest pain type: unspecified Qualified Code(s): R07.9 - Chest pain, unspecified (2) Anxiety Priority: Secondary Status: Chronic Comments: Patient with history of anxiety. Family approached stating that they felt the patient may be having panic attacks. Patient will be discharged to home with a low dose Ativan prescription until she is seen by her PCP. (3) Hypertension Priority: Secondary Status: Chronic Comments: Vital signs remained stable during her stay at this facility. Patient will be discharged home with home medications and is to follow with PCP Qualifiers: Hypertension type: essential hypertension Qualified Code(s): I10 - Essential (primary) hypertension Hospital course: Ms. Reed is a 87 year old female who presented to emergency department with complaints of shortness of breath with chest pressure. Patient was evaluate her emergency department during which time her symptoms subsided but was admitted to facility for rule out NH. Patient was admitted to this facility approximately 2 weeks prior with similar symptoms and was evaluated with all cardiac diagnostic showing negative. Patient at time was discharged to home with instructions to have a outpatient stress test performed, but per family patient has yet to have that done due to issues with insurance. Patient states that her symptoms yesterday were exactly the same as before which she became very short of breath which led to anxiety and chest pressure. Patient denied any actual pain, palpitations or reflux. Patient denied any recent cough or fever/chills. Patient had troponins performed 3 which were all negative during her stay at this facility. Chest x-ray showed no acute process. Patient had EKG 2 which showed sinus rhythm with no ectopy or signs of ischemia. Patient has remained pain-free and without complaints of dyspnea since her admission. Patient was kept on monitor and storage bin tender overnight which showed no ectopy or pauses. Patient is being discharged to home with instructions to continue follow-up with PCP and to have her outpatient stress test performed. Patient is continue with home medications. During her stay at this facility patient's potassium was noted to be at 3.1 and patient was given supplemental potassium Discharge discussed with: patient Time spent discussing smoking cessation with patient: 3 to 10 minutes - Time Spent with Patient Total time spent providing and/or coordinating discharge services: Less than 30 minutes - Discharge Medications Home Medications: Amlodipine Besylate 2.5 mg PO DAILY 03/10/18 [History] Gabapentin [Neurontin] 400 mg PO BID 03/10/18 [History] Levothyroxine [Synthroid] 75 mcg PO DAILY 03/10/18 [History] Lovastatin 40 mg PO DAILY 03/10/18 [History] Nitroglycerin 0.4 mg SL Q5MIN PRN #25 tab.subl 03/11/18 [Rx] Allergies/Adverse Reactions: Allergy/AdvReac Type Severity Reaction Status Date / Time Penicillins [PCN] Allergy Hives Verified 03/25/18 19:38 Date of admission: 03/25/18 21:21 Primary care physician: Nikhil Jeffers Discharging clinician: Amina Jurado - Constitutional Vitals: Temp Pulse Resp BP Pulse Ox 97.7 F 60 18 107/62 95 03/26/18 11:00 03/26/18 11:00 03/26/18 11:00 03/26/18 11:00 03/26/18 11:00 General appearance: Present: A&O X 3, pleasant - Head Head exam: Present: atraumatic, normocephalic - Eye Eye exam: Present: PERRL, conjuntiva pink, sclera anicteric Pupils: Present: PERRL - Neck Neck exam general surgery: Present: supple, trachea midline. Absent: lymphadenopathy - Respiratory Respiratory exam: Present: CTAB. Absent: accessory muscle use, rales, rhonchi, wheezes - Cardiovascular Cardiovascular exam: Present: RRR, +S1, +S2. Absent: diastolic murmur, gallop, rubs, systolic murmur - GI/Abdominal GI/Abdominal exam: Present: normal bowel sounds, soft, no peritoneal signs. Absent: distended, tenderness - Extremities Exam Extremities exam: Present: warm, radial pulses palpable and symmetrical. Absent: calf tenderness, cyanotic, pedal edema - Neurological Exam Neurological exam: Present: CN II-XII intact, oriented X3, no focal deficits. Absent: pronater drift, facial droop, speech deficit - Skin Skin exam: Present: dry, intact - Patient Status Disposition: Home, Self-Care Condition: Good Overall status at discharge: patient is progressing back to baseline - Discharge Instructions Follow Up With: Nikhil Jeffers [Primary Care Provider] - Forms: ED Satisfaction Letter - Diet and Activity Activity: increase activity as tolerated Diet: low fat, low cholesterol, low salt diet
--- NOTE | 2018-03-26 19:49 | Electrocardiograph Report ---
[place] [id number] Test Date: 2018-03-25 Pat Name: Milena Reed Department: 2000 Room: 117 Gender: F Certified Nurses Aide: KIERRA : 1930 Requested By: Jamil Monson Order Number: [id number] Reading MD: Abdiaziz Villeda Measurements Intervals [place] Rate: 66 P: 246 PA: 362 QRS: -26 QRSD: 94 T: -9 QT: 431 QTc: 444 Interpretive Statements Sinus rhythm Artifact Recommend repeat ECG Electronically Signed On 03-26-2018 19:47:35 EDT by Abdiaziz Villeda
--- NOTE | 2018-03-29 15:32 | Electrocardiograph Report ---
[place] [id number] Test Date: 2018-03-26 Pat Name: Milena Reed Department: 2001 Room: 117 Gender: Information Systems Consultant: : 1930 Requested By: Jamil Monson Order Number: [id number] Reading MD: Alma Delia Manzo Measurements Intervals [place] Rate: 60 P: 257 MT: 350 QRS: -22 QRSD: 89 T: 37 QT: 443 QTc: 444 Interpretive Statements SINUS RHYTHM NONSPECIFIC ST AND T FLATTENING ARTIFACT LIMITS INTERPRETATION Electronically Signed On 03-29-2018 15:30:41 EST by Alma Delia Manzo
== END 2018-03-26 19:30 | disposition home or self-care (01) ==
LOC: INPGRE 19:20 → EMEROOGRE 19:20 → INPGRE 21:46

== ENCOUNTER 2018-05-24 03:35 | Inpatient (IN) ==
[2018-05-24 03:59] LABS: Basophils % 0.2 %; Eosinophils % 0.3 %; Hematocrit 36.5 % (35.3-44.9); Hemoglobin 12.7 g/dL (11.5-15.4); Immature Granulocytes % 0.6 % (0-4); Lymphocytes # 1.1 K/mcL (0.6-4.6); Lymphocytes % 8.9 %; Mean Corpuscular HGB Conc 34.8 g/dL (31.6-35.5); Mean Corpuscular Hemoglobin 30.9 pg (28.0-33.3); Mean Corpuscular Volume 88.8 fL (83.0-100.0); Mean Platelet Volume 10.3 fL (9.4-12.4); Monocytes % 8.5 %; Platelet Count 191 K/mcL (140-400); Red Blood Count 4.11 M/mcL (3.82-4.97); Red Cell Distribution Width 13.1 % (11.5-14.5); Segmented Neutrophils % 81.5 %
[2018-05-24 04:01] LABS: INR 1.1; Neutrophils # 9.9 K/mcL (1.6-8.9); Prothrombin Time 12.8 Seconds (9.4-12.1)
[2018-05-24 04:04] LABS: Activated Partial Thrombo Time 30.1 Seconds (26.0-36.0)
[2018-05-24 04:14] LABS: Troponin I < 0.03 ng/mL (< 0.04)
[2018-05-24 04:16] LABS: Alanine Aminotransferase 7 Units/L (7-52); Albumin 3.7 g/dL (3.5-5.7); Albumin/Globulin Ratio 1.2 (1.1-2.2); Alkaline Phosphatase 53 Units/L (34-104); Aspartate Amino Transferase 11 Units/L (13-39); BUN/Creatinine Ratio 12 (6-26); Bilirubin,Direct 0.3 mg/dL (0.0-0.2); Bilirubin,Total 1.3 mg/dL (0.3-1.0); Blood Urea Nitrogen 13 mg/dL (8-23); Calcium 9.5 mg/dL (8.6-10.3); Carbon Dioxide 30 mEq/L (23-29); Chloride 97 mEq/L (98-107); Glucose 171 mg/dL (70-105); Osmolality,Calculated 288 (280-300); Sodium 137 mEq/L (136-145); Total Protein 6.7 g/dL (6.4-8.9); eGFR For Non-African Americans 48 (> 60)
[2018-05-24 04:18] LABS: Ethanol > 10 mg/dL (Less than 10)
--- NOTE | 2018-05-24 04:40 | Emergency Department Note ---
Disposition Clinical Impression: Shortness of breath, Anxiety, Altered mental status, UTI (urinary tract infection) Disposition: Admitted As Inpatient Condition: Good Referrals: Nikhil Jefefrs [Primary Care Provider] - Forms: ED Satisfaction Letter Time of Disposition: 05:47 Altered Mental Status HPI - General Chief Complaint: ED Altered Mental Status Stated Complaint: AMS Time Seen by Provider: 05/24/18 04:00 Source: patient, family Limitations: altered mental status, age Nursing Notes Reviewed: Yes Vital Signs Reviewed: Yes - History of Present Illness HPI Narrative: Elderly female who tells me that all she can do his she cannot breathe does not know why she is here tells me that her daughter brought her as result I spoke with the daughter he states he the day before yesterday they were at dinner at a local restaurant when she came out of the restroom she was crying in severe back pain she was able to walk though they could not find a source that was causing the pain or discomfort have watched her at home the daughter notes that her urine is been very strong she has been running a low-grade fever but over the past 24 hours she has had increasing confusion her appetite has been down and she is been very picky at her eating and she is clearly not in her normal Daughter says she is much more lucid than this usually she has never had an epis ode like this daughter tells me that 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 they have had no problems with to the stay the daughter tells me that no one else got sick at the medial she denies though any additional complaints the best that she can provide me at this time with entire review systems Fever back pain but no change with activity or resting 8-9 out of 10 no cough patient has perceived shortness of breath but she has not seen her mother in any distress she has had increasing confusion little appetite little urine or bowel movement MD complaint: altered mental status, confusion, decreased responsiveness Onset (ago): day(s) Timing confirmed by: family member Pain Severity: moderate, severe Pain Scale: 7 Consistency of Symptoms: waxing and waning Context: other (spinal stimulator) Associated symptoms: Reports: fever, loss of appetite, malaise, shortness of breath, weakness, foul smelling urine, difficulty walking. Denies: chest pain, cough, diaphoresis, chills, headaches, nausea/vomiting, rash, seizure, syncope, diarrhea, incontinence - Related Data Home Medications Medication Instructions Recorded Confirmed Amlodipine Besylate 2.5 mg PO DAILY 03/10/18 05/24/18 Gabapentin [Neurontin] 400 mg PO BID 03/10/18 05/24/18 Levothyroxine [Synthroid] 75 mcg PO DAILY 03/10/18 05/24/18 Lovastatin 40 mg PO DAILY 03/10/18 05/24/18 LORazepam [Ativan] 0.5 mg PO TID PRN 05/24/18 05/24/18 Previous Rx's Medication Instructions Recorded Nitroglycerin 0.4 mg SL Q5MIN PRN #25 tab.subl 03/11/18 Allergies Allergy/AdvReac Type Severity Reaction Status Date / Time Penicillins [PCN] Allergy Hives Verified 05/24/18 03:57 Limitations: ROS unobtainable due to patients medical condition (Please see history of present illness daughter provided information) Past Medical History - Past Medical History Attestation: Yes The following information was validated with the patient. Source: patient, old records reviewed, obtained from family, nursing notes reviewed Medical history: Reports: hyperlipidemia, hypertension, thyroid disease Surgical history: Reports: hysterectomy, other Psychiatric history: Reports: no psych history, anxiety - Social History Smoking Status: Former smoker Smokeless Tobacco Status: Yes Alcohol use: Reports: none Drug use: Reports: none Physical Exam - General Limitations: altered mental status, age General appearance: alert, in no apparent distress, anxious, cachectic - Head Head exam: atraumatic, normocephalic, normal inspection - Eye Eye exam: Present: normal appearance, PERRL, EOMI - ENT ENT exam: normal exam, normal oropharynx, mucous membranes moist, TM's normal bilaterally, normal external ear exam - Neck Neck exam: Present: normal inspection, full ROM, trachea midline - Chest Chest inspection: Present: normal inspection, symmetric chest wall rise - Respiratory Respiratory exam: Present: normal lung sounds bilaterally - Cardiovascular Cardiovascular exam: Present: regular rate, normal rhythm, normal heart sounds - Abdominal Exam Abdominal exam: Present: soft, Non-Tender, normal bowel sounds. Absent: mass, pulsatile mass - Expanded Upper Extremity Exam Shoulder exam: Present: normal inspection, full ROM Arm exam: Present: normal inspection, full ROM Elbow exam: Present: normal inspection, full ROM Forearm/Wrist exam: Present: normal inspection, full ROM Hand exam: Present: normal inspection, full ROM Vascular exam: Normal: capillary refill, radial pulse - Expanded Lower Extremity Exam Hip/Pelvis exam: Present: normal inspection, full ROM Upper leg exam: Present: normal inspection, full ROM Knee exam: Present: normal inspection, full ROM Lower leg exam: Present: normal inspection, full ROM Ankle exam: Present: normal inspection, full ROM Foot/toe exam: Present: normal inspection, full ROM Neurovascular/Tendon exam: Present: normal capillary refill, normal fine/light touch. Absent: motor deficit, sensory deficit, tendon deficit Gait: not tested/not observed - Back Exam Back exam: Present: normal inspection, full ROM. Absent: muscle spasm - Neurological Exam Neurological exam: Present: alert, CN II-XII intact, other (Patient's confused she continually states that she is having trouble breathing though she is in no distress) - Psychiatric Psychiatric exam: Present: other (Confused does not know date and time or place) - Skin Skin exam: Present: warm, dry, intact, normal color Course Course Narrative: Patient seen and evaluated laboratory data was ordered including a CT of the lumbar spine because the patient had been complaining of severe back pain while she was in the restroom and came out at the facility urinalysis and blood cultures were obtained she was started on antibiotics in the emergency room awaiting results - Reevaluation(s) Reevaluation #1: Spoke with Dr. Sanchez the hospitalist is agreed for admission to his services are provided transferred to [facility] continuing on the Rocephin Vital Signs Temperature 98.5 F 05/24/18 03:57 Pulse Rate 73 05/24/18 03:57 Respiratory Rate 20 05/24/18 03:57 Blood Pressure 127/65 05/24/18 03:57 O2 Sat by Pulse Oximetry 96 05/24/18 03:57 Temperature 98.5 F 05/24/18 03:57 Pulse Rate 69 05/24/18 04:40 Respiratory Rate 16 05/24/18 04:40 Blood Pressure 120/54 05/24/18 04:40 O2 Sat by Pulse Oximetry 99 05/24/18 04:40 Oxygen Delivery Oxygen Delivery Room Air Altered Mental Status - MDM Narrative Medical decision making narrative: Bacterial viral infection including the flu - Differential Diagnosis Likely: altered mental status, delirium, dementia, sepsis - Medical Records Medical records reviewed: Yes I reviewed the patient's medical records. - Lab Data Lab results reviewed: Yes I reviewed the patient's lab results. Result diagrams: 05/24/18 03:55 05/24/18 03:55 Lab Results 05/24/18 05/24/18 05/24/18 Range/Units 03:55 03:55 03:55 WBC 12.2 H (4.3-11.1) K/mcL RBC 4.11 (3.82-4.97) M/mcL Hgb 12.7 (11.5-15.4) g/dL Hct 36.5 (35.3-44.9) % MCV 88.8 (83.0-100.0) fL MCH 30.9 (28.0-33.3) pg MCHC 34.8 (31.6-35.5) g/dL RDW 13.1 (11.5-14.5) % Plt Count 191 (140-400) K/mcL MPV 10.3 (9.4-12.4) fL Immature Gran % 0.6 (0-4) % Seg Neutrophils % 81.5 % Lymphocytes % 8.9 % Monocytes % 8.5 % Eosinophils % 0.3 % Basophils % 0.2 % Neutrophils # 9.9 H (1.6-8.9) K/mcL Lymphocytes # 1.1 (0.6-4.6) K/mcL Monocytes # 1.0 (0.0-1.3) K/mcL Eosinophils # 0.0 (0.0-0.6) K/mcL Basophils # 0.0 (0.0-0.2) K/mcL PT 12.8 H (9.4-12.1) Seconds INR 1.1 APTT 30.1 (26.0-36.0) Seconds Sodium 137 (136-145) mEq/L Potassium 3.0 L (3.5-5.1) mEq/L Chloride 97 L (98-107) mEq/L Carbon Dioxide 30 H (23-29) mEq/L BUN 13 (8-23) mg/dL Creatinine 1.08 (0.60-1.20) mg/dL Est GFR ( Amer) 58 L (> 60) Est GFR (Non-Af Amer) 48 L (> 60) BUN/Creatinine Ratio 12 (6-26) Glucose 171 H (70-105) mg/dL POC Glucose (70-99) mg/dL Calculated Osmolality 288 (280-300) Lactic Acid (0.5-2.2) mmol/L Calcium 9.5 (8.6-10.3) mg/dL Total Bilirubin 1.3 H (0.3-1.0) mg/dL Direct Bilirubin 0.3 H (0.0-0.2) mg/dL Indirect Bilirubin 1.0 (0.0-1.2) mg/dL AST 11 L (13-39) Units/L ALT 7 (7-52) Units/L Alkaline Phosphatase 53 (34-104) Units/L Troponin I < 0.03 (< 0.04) ng/mL Serum Total Protein 6.7 (6.4-8.9) g/dL Albumin 3.7 (3.5-5.7) g/dL Globulin 3.0 (2.4-3.5) g/dL Albumin/Globulin Ratio 1.2 (1.1-2.2) Urine Color (Yellow) Urine Clarity (Clear) Urine pH (5.0-8.0) pH Units Ur Specific [place] (1.010-1.025) Urine Protein (Neg-Trace) mg/dL Urine Glucose (UA) (Normal) mg/dL Urine Ketones (Negative) mg/dL Urine Blood (Negative) Urine Nitrite (Negative) Urine Bilirubin (Negative) Urine Urobilinogen (Normal) mg/dL Ur Leukocyte Esterase (Negative) Urine Microscopic RBC (0-3) per hpf Urine Microscopic WBC (0-3) per hpf Amorphous Sediment (Few) Urine Bacteria (None-Few) per hpf Hyaline Casts (None-Few) per lpf Ur Culture Indicated? (NO) Urine Opiates Screen (Rjqjgz=182) ng/mL Ur Barbiturates Screen (Bbkpbq=569) ng/mL Ur Phencyclidine Scrn (Cutoff=25) ng/mL Ur Amphetamines Screen (Uatjem=4114) ng/mL U Benzodiazepines Scrn (Fgliuc=519) ng/mL Urine Cocaine Screen (Cutoff= 300) ng/mL U Marijuana (THC) Screen (Cutoff = 50) ng/mL Ur Drug Screen Interp Ethyl Alcohol > 10 H (Less than 10) mg/dL 12/31/18 12/31/18 12/31/18 Range/Units 04:00 04:09 04:40 WBC (4.3-11.1) K/mcL RBC (3.82-4.97) M/mcL Hgb (11.5-15.4) g/dL Hct (35.3-44.9) % MCV (83.0-100.0) fL MCH (28.0-33.3) pg MCHC (31.6-35.5) g/dL RDW (11.5-14.5) % Plt Count (140-400) K/mcL MPV (9.4-12.4) fL Immature Gran % (0-4) % Seg Neutrophils % % Lymphocytes % % Monocytes % % Eosinophils % % Basophils % % Neutrophils # (1.6-8.9) K/mcL Lymphocytes # (0.6-4.6) K/mcL Monocytes # (0.0-1.3) K/mcL Eosinophils # (0.0-0.6) K/mcL Basophils # (0.0-0.2) K/mcL PT (9.4-12.1) Seconds INR APTT (26.0-36.0) Seconds Sodium (136-145) mEq/L Potassium (3.5-5.1) mEq/L Chloride (98-107) mEq/L Carbon Dioxide (23-29) mEq/L BUN (8-23) mg/dL Creatinine (0.60-1.20) mg/dL Est GFR ( Amer) (> 60) Est GFR (Non-Af Amer) (> 60) BUN/Creatinine Ratio (6-26) Glucose (70-105) mg/dL POC Glucose 171 H (70-99) mg/dL Calculated Osmolality (280-300) Lactic Acid 1.2 (0.5-2.2) mmol/L Calcium (8.6-10.3) mg/dL Total Bilirubin (0.3-1.0) mg/dL Direct Bilirubin (0.0-0.2) mg/dL Indirect Bilirubin (0.0-1.2) mg/dL AST (13-39) Units/L ALT (7-52) Units/L Alkaline Phosphatase (34-104) Units/L Troponin I (< 0.04) ng/mL Serum Total Protein (6.4-8.9) g/dL Albumin (3.5-5.7) g/dL Globulin (2.4-3.5) g/dL Albumin/Globulin Ratio (1.1-2.2) Urine Color Yellow (Yellow) Urine Clarity Slightly Cloudy A (Clear) Urine pH 6.0 (5.0-8.0) pH Units Ur Specific [place] 1.020 (1.010-1.025) Urine Protein 100 H (Neg-Trace) mg/dL Urine Glucose (UA) Normal (Normal) mg/dL Urine Ketones Negative (Negative) mg/dL Urine Blood Moderate H (Negative) Urine Nitrite Negative (Negative) Urine Bilirubin Negative (Negative) Urine Urobilinogen Normal (Normal) mg/dL Ur Leukocyte Esterase Moderate H (Negative) Urine Microscopic RBC 5-15 H (0-3) per hpf Urine Microscopic WBC 5-15 H (0-3) per hpf Amorphous Sediment Few (Few) Urine Bacteria Few (None-Few) per hpf Hyaline Casts Few (None-Few) per lpf Ur Culture Indicated? YES A (NO) Urine Opiates Screen (Tmzhhv=275) ng/mL Ur Barbiturates Screen (Iepfae=872) ng/mL Ur Phencyclidine Scrn (Cutoff=25) ng/mL Ur Amphetamines Screen (Xvuwgk=2278) ng/mL U Benzodiazepines Scrn (Wjrltk=756) ng/mL Urine Cocaine Screen (Cutoff= 300) ng/mL U Marijuana (THC) Screen (Cutoff = 50) ng/mL Ur Drug Screen Interp Ethyl Alcohol (Less than 10) mg/dL 05/24/18 Range/Units 04:40 WBC (4.3-11.1) K/mcL RBC (3.82-4.97) M/mcL Hgb (11.5-15.4) g/dL Hct (35.3-44.9) % MCV (83.0-100.0) fL MCH (28.0-33.3) pg MCHC (31.6-35.5) g/dL RDW (11.5-14.5) % Plt Count (140-400) K/mcL MPV (9.4-12.4) fL Immature Gran % (0-4) % Seg Neutrophils % % Lymphocytes % % Monocytes % % Eosinophils % % Basophils % % Neutrophils # (1.6-8.9) K/mcL Lymphocytes # (0.6-4.6) K/mcL Monocytes # (0.0-1.3) K/mcL Eosinophils # (0.0-0.6) K/mcL Basophils # (0.0-0.2) K/mcL PT (9.4-12.1) Seconds INR APTT (26.0-36.0) Seconds Sodium (136-145) mEq/L Potassium (3.5-5.1) mEq/L Chloride (98-107) mEq/L Carbon Dioxide (23-29) mEq/L BUN (8-23) mg/dL Creatinine (0.60-1.20) mg/dL Est GFR ( Amer) (> 60) Est GFR (Non-Af Amer) (> 60) BUN/Creatinine Ratio (6-26) Glucose (70-105) mg/dL POC Glucose (70-99) mg/dL Calculated Osmolality (280-300) Lactic Acid (0.5-2.2) mmol/L Calcium (8.6-10.3) mg/dL Total Bilirubin (0.3-1.0) mg/dL Direct Bilirubin (0.0-0.2) mg/dL Indirect Bilirubin (0.0-1.2) mg/dL AST (13-39) Units/L ALT (7-52) Units/L Alkaline Phosphatase (34-104) Units/L Troponin I (< 0.04) ng/mL Serum Total Protein (6.4-8.9) g/dL Albumin (3.5-5.7) g/dL Globulin (2.4-3.5) g/dL Albumin/Globulin Ratio (1.1-2.2) Urine Color (Yellow) Urine Clarity (Clear) Urine pH (5.0-8.0) pH Units Ur Specific [place] (1.010-1.025) Urine Protein (Neg-Trace) mg/dL Urine Glucose (UA) (Normal) mg/dL Urine Ketones (Negative) mg/dL Urine Blood (Negative) Urine Nitrite (Negative) Urine Bilirubin (Negative) Urine Urobilinogen (Normal) mg/dL Ur Leukocyte Esterase (Negative) Urine Microscopic RBC (0-3) per hpf Urine Microscopic WBC (0-3) per hpf Amorphous Sediment (Few) Urine Bacteria (None-Few) per hpf Hyaline Casts (None-Few) per lpf Ur Culture Indicated? (NO) Urine Opiates Screen Negative (Pczqim=292) ng/mL Ur Barbiturates Screen Negative (Vfippn=015) ng/mL Ur Phencyclidine Scrn Negative (Cutoff=25) ng/mL Ur Amphetamines Screen Negative (Mliojg=1221) ng/mL U Benzodiazepines Scrn Negative (Tjdngz=800) ng/mL Urine Cocaine Screen Negative (Cutoff= 300) ng/mL U Marijuana (THC) Screen Negative (Cutoff = 50) ng/mL Ur Drug Screen Interp See Below Ethyl Alcohol (Less than 10) mg/dL - Radiology Data Radiology results reviewed: Yes I reviewed the patient's radiology results. ITS Impressions Chest X-Ray 05/24/18 03:54 IMPRESSION: No acute disease. D/ / Josue Candelaria MD / Josue Candelaria MD Interpreting Provider: Josue Candelaria MD Impressions Chest X-Ray 05/24/18 03:54 IMPRESSION: No acute disease. D/ / Josue Candelaria MD / Josue Candelaria MD Interpreting Provider: Josue Candelaria MD Abdomen/Pelvis CT 05/24/18 04:39 IMPRESSION: 1. Left-sided hydroureteronephrosis with stones in both kidneys but no ureteral or bladder calculi. This raises the possibility of a recently passed stone. 2. Diverticulosis without scan evidence for diverticulitis. D/ / Josue Candelaria MD / Josue Candelaria MD Interpreting Provider: Josue Candelaria MD - EKG Data EKG attestation: Yes I reviewed and interpreted this EKG. EKG results narrative: Electronically paced rhythm heart rate 72 MS 296 QRS 89 QT 404 axis -27 TPA Checklist - LKW: 3-4.5 hrs Add. Warnings/Precautions Patient/family understanding: The patient/family members have been counseled and understood the risk, benefit, and alternatives of treatment. Critical Care Time Critical Care Time: Yes Total Critical Care Time: 35 Attestation: Critical care performed: 35 minutes due to the altered mental status and working patient for the possibility of sepsis based upon the history is provided by the family because the patient is unable to provide me with adequate history at this time discussed with the hospitalist for admission IV hydration and antibiotics Time is exclusive of separately billable procedures. Time includes: direct patient care, patient reassessment, coordination of patient care, interpretation of data (laboratory data, radiology data, and respiratory data), review of patient's medical records, medical consultation and documentation of patient care. Procedures included in critical care time: Procedures excluded from critical care time:
[2018-05-24 04:45] LABS: Bilirubin,Urine Negative (Negative); Blood,Urine Moderate (Negative); Clarity,Urine Slightly Cloudy (Clear); Glucose,Urine (UA) Normal (Normal); Ketones,Urine Negative (Negative); Leukocyte Esterase,Urine Moderate (Negative); Nitrite,Urine Negative (Negative); Protein,Urine 100 mg/dL (Neg-Trace); Urobilinogen,Urine Normal (Normal)
[2018-05-24 04:51] LABS: Color,Urine Yellow (Yellow)
[2018-05-24 04:52] LABS: Amorphous Sediment,Urine Few (Few); Bacteria,Urine Few per hpf (None-Few); Hyaline Casts,Urine Few per lpf (None-Few)
[2018-05-24 05:00] LABS: Amphetamine Screen,Urine Negative ng/mL (Cutoff=1000); Barbiturate Screen,Urine Negative ng/mL (Cutoff=200); Benzodiazepines Screen,Urine Negative ng/mL (Cutoff=200); Cannabinoid Screen,Urine Negative ng/mL (Cutoff = 50); Cocaine Screen,Urine Negative ng/mL (Cutoff= 300); Opiate Screen,Urine Negative ng/mL (Cutoff=300); Phencyclidine Screen,Urine Negative ng/mL (Cutoff=25)
[2018-05-24] MEDS ORDERED: 0.9 % Sodium Chloride 1,000 ML IVC SCH (05:15)
[2018-05-24] MEDS ORDERED: cefTRIAXone 1,000 MG in 0.9 % Sodium Chloride Mini Bag 100 ML IVPB ONE (05:15)
[2018-05-24] MEDS ORDERED: Naloxone 0.4 MG/ML INJ IVP PRN (06:49)
[2018-05-24] MEDS: Gabapentin 400 MG CAPSULE PO SCH ×2 (10:36→20:56)
[2018-05-24] MEDS: amLODIPine 5 MG TABLET PO SCH (10:36)
--- NOTE | 2018-05-24 13:12 | Internal Med History&Physical ---
Date of Encounter: 05/24/18 Time of Encounter: 13:10 Assessment and Plan (1) UTI (urinary tract infection) Current visit: Yes Status: Acute This could be rather severe cystitis or could be pyelonephritis. Cultures are pending. Will treat with IV antibiotics for at least another day or 2 and then will require oral antibiotics, thereafter. Qualifiers: Urinary tract infection type: site unspecified Hematuria presence: without hematuria Qualified Code(s): N39.0 - Urinary tract infection, site not specified (2) Altered mental status Current visit: Yes Status: Acute This is believed to be due to her infectious status. Anxiety complicates and will follow. I expect that her elevated alcohol level is a lab error and will repeat to verify. Qualifiers: Altered mental status type: delirium Qualified Code(s): R41.0 - Disorientation, unspecified (3) Hypertension Current visit: No Status: Chronic We will continue home regimen and follow. Qualifiers: Hypertension type: essential hypertension Qualified Code(s): I10 - Essential (primary) hypertension (4) Hyperlipidemia Current visit: No Status: Acute This is a chronic problem for which we will continue her previous regimen. Qualifiers: Hyperlipidemia type: unspecified Qualified Code(s): E78.5 - Hyperlipidemia, unspecified (5) DVT prophylaxis Current visit: No Status: Acute We will use heparin subcutaneous to control. (6) Hypothyroidism Current visit: No Status: Acute Clinically euthyroid. TSH was normal. Qualifiers: Hypothyroidism type: unspecified Qualified Code(s): E03.9 - Hypothyroidism, unspecified (7) Chest pain Current visit: No Status: Acute Atypical without recent symptoms. Stress test reportedly normal at [facility], per daughter's. Suspect that anxiety was at root of her symptoms. Qualifiers: Chest pain type: unspecified Qualified Code(s): R07.9 - Chest pain, uns pecified (8) Anxiety Current visit: Yes Status: Chronic Based on experience with this and with the daughters have decided about her changes, I suspect that she has had anxiety and it is worsening with a complement of dementia added. She is on Ativan but a long-term evaluation and plan is needed. She has a neurology appointment on June 01. Internal Medicine - H&P: HPI Chief complaint: Change in mental Status. Admitted From: Home Plans for Post Hospital Care: Home History of present illness: Ms. Reed is a 87 year old female known to me who was in her usual state of health until approximately 2 days ago. At that point, she was found to have diminished responsiveness, difficulty singing, and complained of right-sided back pain. She was also noted to have a temperature that went to a maximum of 102 and later was 101.6 and thus was brought to the emergency room. She had felt warm but really had not had chills or sweats. She had no abdominal pain. She has a history of anxiety and this has been treated, rather extensively. The daughter's focus on her breathing difficulty which is actually her taking a deep breath through her nose. She relates this to increased nasal discharge which is clear and not thickened. She has no other respiratory symptoms but feel that she can "could not catch her breath." They give and she gives no history of dyspnea on exertion, etc. she is treated with Flonase at home because of her rhinorrhea. Because of her ongoing anxiety they took her to [place] where she had a stress test and this is reported by daughter's to have been normal without signs of ischemia. Because of her ongoing anxiety, she is still treated with Ativan 0.5 mg 3 times a day as needed. She is using this about once a day, especially in the evening. She has no playing with her neurologist on June 01 for evaluation of the anxiety. One daughter notes that she frequently repeats herself but is otherwise usually able to make sense and to discuss details of life, living, etc. without difficulty until 2 days ago. She denied dysuria or other change in urine although the daughter noticed that she had very severe smelling and turning the evening, 2 days ago. No hematuria. She has hypertension which is well controlled and hypothyroidism, on supplementation. TSH is normal on admission. Past Med Surg Social Fam HX - Past Medical History Medical history: arthritis, cancer, hyperlipidemia, hypertension, thyroid disease Additional medical history: non hodgkins lymphoma Psychiatric history: anxiety - Past Surgical History Surgical History: hysterectomy, other Additional surgical history: spinal stimulater, tonselectomy - Social History Smoking Status: Former smoker Smokeless Tobacco Status: Yes Alcohol use: none Drug use: none Additional social history: Has not drunk alcohol in over 35 years. - Family History Mother Living Status: Father Living Status: Hx Family Cardiac Disorders: Yes Internal Medicine - H&P: Meds Amlodipine Besylate 2.5 mg PO DAILY 03/10/18 [History] Gabapentin [Neurontin] 400 mg PO BID 03/10/18 [History] Levothyroxine [Synthroid] 75 mcg PO DAILY 03/10/18 [History] Lovastatin 40 mg PO DAILY 03/10/18 [History] Nitroglycerin 0.4 mg SL Q5MIN PRN #25 tab.subl 03/11/18 [Rx] LORazepam [Ativan] 0.5 mg PO TID PRN 05/24/18 [History] Allergy/AdvReac Type Severity Reaction Status Date / Time Penicillins [PCN] Allergy Hives Verified 05/24/18 03:57 All Systems PM: Patient has no complaint of chest discomfort, dyspnea, orthopnea, breathing problems, palpitations, nausea or vomiting, constipation or diarrhea, other changes in bowel habits, heartburn, difficulty with urination, kidney problems or kidney stones, fevers chills or sweats, rash or itching, seizures, headache or lightheadedness, heat or cold intolerance, blood problems or anemia, or other new complaints, except as mentioned above. Review of systems is otherwise negative. - Constitutional Vitals: Temp Pulse Resp BP Pulse Ox 102.5 F H 81 18 134/61 96 05/24/18 12:41 05/24/18 12:41 05/24/18 12:41 05/24/18 12:41 05/24/18 12:41 Exam: Examination: (Except as mentioned above): General: In no apparent distress, alert and oriented 3. She is somewhat somnolent. She is noted to frequently moan, with a nondrinker respiratory type deep inspiration. I suspect this is related to her anxiety. Head: Atraumatic and normocephalic. Eyes: Extraocular muscles are intact, pupils equal round and reactive to light and accommodation. Sclerae anicteric. Ears: External ears are normal to inspection and hearing is grossly normal. Nose: Patent without lesion noted. Mouth: No intraoral lesions seen. Dentition is unremarkable. Neck: Supple with trachea midline. There is no thyromegaly or adenopathy and carotids are 2+ without bruit heard. Respiratory: No use of accessory muscles. Lungs are clear throughout. Normal airflow. Cardiovascular: Regular rate and rhythm without murmur appreciated. Abdomen: Bowel sounds are normal. No hepatosplenomegaly or masses but she does show diffuse abdominal tenderness. There is no guarding or rebound and tenderness is mild to moderate. It is not localized in all 4 quadrants. Extremities: No cyanosis clubbing or edema. She notes tenderness with examination at both pre-and posterior tibial areas. Neurological: A and O 3. Cranial nerves II through XII are intact. No focal deficits and no abnormal movements or postures. Skin: Warm and non-diaphoretic with no lesions noted. Breasts, pelvic and rectal: Not examined. Internal Med - H&P Results - Labs CBC & Chem 7: 05/24/18 03:55 05/24/18 03:55 Labs: Short CBC 05/24/18 Range/Units 03:55 WBC 12.2 H (4.3-11.1) K/mcL Hgb 12.7 (11.5-15.4) g/dL Hct 36.5 (35.3-44.9) % Plt Count 191 (140-400) K/mcL Neutrophils # 9.9 H (1.6-8.9) K/mcL BMP 05/24/18 03:55 Sodium 137 Potassium 3.0 L Chloride 97 L Carbon Dioxide 30 H BUN 13 Creatinine 1.08 Glucose 171 H Calcium 9.5 Cardiac Enzymes 05/24/18 Range/Units 03:55 Troponin I < 0.03 (< 0.04) ng/mL Liver Function 05/24/18 Range/Units 03:55 Total Bilirubin 1.3 H (0.3-1.0) mg/dL Direct Bilirubin 0.3 H (0.0-0.2) mg/dL AST 11 L (13-39) Units/L ALT 7 (7-52) Units/L Alkaline Phosphatase 53 (34-104) Units/L Albumin 3.7 (3.5-5.7) g/dL Urine 05/24/18 Range/Units 04:40 Urine Color Yellow (Yellow) Urine Clarity Slightly Cloudy A (Clear) Urine pH 6.0 (5.0-8.0) pH Units Ur Specific [place] 1.020 (1.010-1.025) Urine Protein 100 H (Neg-Trace) mg/dL Urine Glucose (UA) Normal (Normal) mg/dL - Impressions ITS Impressions Chest X-Ray 05/24/18 03:54 IMPRESSION: No acute disease. D/ / Josue Candelaria MD / Josue Candelaria MD Interpreting Provider: Josue Candelaria MD Abdomen/Pelvis CT 05/24/18 04:39 IMPRESSION: 1. Left-sided hydroureteronephrosis with stones in both kidneys but no ureteral or bladder calculi. This raises the possibility of a recently passed stone. 2. Diverticulosis without scan evidence for diverticulitis. D/ / Josue Candelaria MD / Josue Candelaria MD Interpreting Provider: Josue Candelaria MD
[2018-05-24] MEDS: Acetaminophen 325 MG TABLET PO PRN (13:33)
[2018-05-24] MEDS ORDERED: Acetaminophen 325 MG TABLET PO SCH (16:00)
[2018-05-24] MEDS: 0.9 % Sodium Chloride 1,000 ML IVC SCH ×2 (19:45→21:03)
[2018-05-24] MEDS: *HR* Heparin 5,000 UNIT/ML VIAL SQ SCH (19:48)
[2018-05-25 00:22] LABS: Acinetobacter baumannii by PCR Not Detected (Not Detect); Candida albicans by PCR Not Detected (Not Detect); Candida glabrata by PCR Not Detected (Not Detect); Candida krusei by PCR Not Detected (Not Detect); Candida parapsilosis by PCR Not Detected (Not Detect); Candida tropicalis by PCR Not Detected (Not Detect); Enterobacter cloacae Cmplx PCR Not Detected (Not Detect); Enterobacteriaceae by PCR DETECTED (Not Detect); Enterococcus by PCR Not Detected (Not Detect); Escherichia coli by PCR DETECTED (Not Detect); Klebsiella oxytoca by PCR Not Detected (Not Detect); Klebsiella pneumoniae by PCR Not Detected (Not Detect); Proteus by PCR Not Detected (Not Detect); Pseudomonas aeruginosa by PCR Not Detected (Not Detect); Serratia marcescens by PCR Not Detected (Not Detect); Staphylococcus aureus by PCR Not Detected (Not Detect); Staphylococcus by PCR Not Detected (Not Detect); Streptococcus agalactiae(B)PCR Not Detected (Not Detect); Streptococcus by PCR Not Detected (Not Detect); Streptococcus pneumoniae PCR Not Detected (Not Detect); Streptococcus pyogenes (A) PCR Not Detected (Not Detect); blaKPC Carbapenem-Resist Gene Not Detected (Not Detect); mecA Methicillin-Resist Gene Not Detected (Not Detect); vanA/B Vancomycin-Resist Genes Not Detected (Not Detect)
[2018-05-25] MEDS: Fluticasone Propionate Nasal 50 MCG/SPRAY BOTTLE NS SCH (00:42)
[2018-05-25] MEDS: *HR* LORazepam 0.5 MG TABLET PO PRN ×3 (00:42→23:15)
[2018-05-25] MEDS: Acetaminophen 325 MG TABLET PO PRN ×2 (04:52→17:34)
[2018-05-25] MEDS: 0.9 % Sodium Chloride 1,000 ML IVC SCH ×2 (04:52→08:58)
[2018-05-25] MEDS: *HR* Heparin 5,000 UNIT/ML VIAL SQ SCH ×2 (05:59→17:34)
[2018-05-25 06:10] LABS: Basophils % 0.3 %; Eosinophils # 0.1 K/mcL (0.0-0.6); Hematocrit 29.5 % (35.3-44.9); Immature Granulocytes % 0.5 % (0-4); Lymphocytes # 1.1 K/mcL (0.6-4.6); Lymphocytes % 12.3 %; Mean Corpuscular HGB Conc 34.2 g/dL (31.6-35.5); Mean Corpuscular Hemoglobin 30.6 pg (28.0-33.3); Mean Corpuscular Volume 89.4 fL (83.0-100.0); Mean Platelet Volume 10.4 fL (9.4-12.4); Monocytes # 0.9 K/mcL (0.0-1.3); Monocytes % 10.8 %; Neutrophils # 6.5 K/mcL (1.6-8.9); Platelet Count 149 K/mcL (140-400); Red Cell Distribution Width 13.1 % (11.5-14.5); Segmented Neutrophils % 75.1 %
[2018-05-25 06:13] LABS: INR 1.2; Prothrombin Time 13.2 Seconds (9.4-12.1)
[2018-05-25 06:17] LABS: Activated Partial Thrombo Time 30.9 Seconds (26.0-36.0)
[2018-05-25 06:25] LABS: BUN/Creatinine Ratio 11 (6-26); Blood Urea Nitrogen 10 mg/dL (8-23); Calcium 8.5 mg/dL (8.6-10.3); Carbon Dioxide 28 mEq/L (23-29); Chloride 107 mEq/L (98-107); Glucose 125 mg/dL (70-105); Osmolality,Calculated 289 (280-300); Potassium 2.8 mEq/L (3.5-5.1); Sodium 139 mEq/L (136-145); eGFR For Non-African Americans 56 (> 60)
[2018-05-25 06:26] LABS: Hemoglobin 10.1 g/dL (11.5-15.4)
[2018-05-25] MEDS: amLODIPine 5 MG TABLET PO SCH (08:57)
[2018-05-25] MEDS: Gabapentin 400 MG CAPSULE PO SCH ×2 (08:58→23:14)
[2018-05-25] MEDS ORDERED: cefTRIAXone 1,000 MG in 0.9 % Sodium Chloride Mini Bag 100 ML IVPB ONE (09:00)
[2018-05-25] MEDS ORDERED: 0.9 % Sodium Chloride w KCl 20 MEQ/1,000 ML MLS IVC SCH (10:30)
--- NOTE | 2018-05-25 11:58 | Internal Med Progress Note ---
Date of Encounter: 05/25/18 Time of Encounter: 11:57 - Assessment and plan (1) UTI (urinary tract infection) Current Visit: Yes Status: Acute Assessment and plan: This is presumed pyelonephritis with Escherichia coli and Escherichia coli septicemia. This has improved with current antibiotics. Will await antibiotic sensitivities, tomorrow. Plan home with exterminator antibiotics and follow-up for possible imaging, with primary care physician. Explained to patient and daughter. Qualifiers: Urinary tract infection type: site unspecified Hematuria presence: without hematuria Qualified Code(s): N39.0 - Urinary tract infection, site not specif ied (2) Altered mental status Current Visit: Yes Status: Acute Assessment and plan: From infection. Qualifiers: Altered mental status type: delirium Qualified Code(s): R41.0 - Disorientation, unspecified (3) Hypertension Current Visit: No Status: Chronic Assessment and plan: Clinically stable. Qualifiers: Hypertension type: essential hypertension Qualified Code(s): I10 - Essential (primary) hypertension (4) Hyperlipidemia Current Visit: No Status: Acute Qualifiers: Hyperlipidemia type: unspecified Qualified Code(s): E78.5 - Hyperlipidemia, unspecified (5) DVT prophylaxis Current Visit: No Status: Acute Assessment and plan: We will continue on heparin subcutaneous. (6) Hypothyroidism Current Visit: No Status: Acute Assessment and plan: Clinically stable. Qualifiers: Hypothyroidism type: unspecified Qualified Code(s): E03.9 - Hypothyroidism, unspecified (7) Chest pain Current Visit: No Status: Acute Assessment and plan: No signs or symptoms. Qualifiers: Chest pain type: unspecified Qualified Code(s): R07.9 - Chest pain, unspecified (8) Anxiety Current Visit: Yes Status: Chronic Assessment and plan: Ongoing problem and possibly worsened by dementia. (9) Hypokalemia Current Visit: Yes Status: Acute Assessment and plan: Will supplement orally and will follow. Will check magnesium level. (10) Rales Current Visit: Yes Status: Acute Assessment and plan: This may be atelectasis and will ask that patient have incentive spirometry. In addition, we will check a chest x-ray to make sure she is not experiencing fluid overload. - Subjective Interval history: Patient is feeling much better and is much more lucid and reactive, today. Daughter notes improvement in his great toe. Patient has minimal abdominal pain and right sided and back pain have resolved. She denies other issues. She had a normal bowel movement without diarrhea. Patient has no complaint of chest discomfort, dyspnea, orthopnea, palpitations, nausea or vomiting, constipation or diarrhea, other changes in bowel habits, difficulty with urination, rash or itching, or other new complaints, except as mentioned above. Review of systems is otherwise negative. I discussed management of her care with nursing staff. - Constitutional Vitals: Temp Pulse Resp BP Pulse Ox 100.9 F H 69 15 128/59 95 05/25/18 04:40 05/25/18 08:54 05/25/18 08:54 05/25/18 08:54 05/25/18 08:54 Exam: Examination: (Except as mentioned above): General: In no apparent distress. Alert and oriented 3. Nondiaphoretic. Head: Atraumatic and normocephalic. Respiratory: No use of accessory muscles. Lungs have bibasilar rales. Normal airflow. Cardiovascular: Regular rate and rhythm without murmur appreciated. Abdomen: Bowel sounds are normal. No hepatosplenomegaly or mass but has mild diffuse abdominal tenderness. There is no guarding or rebound, or localization. She has no CVA tenderness. Extremities: No cyanosis clubbing or edema. Skin: Warm and non-diaphoretic with no new lesions noted. Internal Medicine: Result - Labs CBC & Chem 7: 05/25/18 05:55 05/25/18 05:55 Labs: Short CBC 05/25/18 Range/Units 05:55 WBC 8.7 (4.3-11.1) K/mcL Hgb 10.1 L D (11.5-15.4) g/dL Hct 29.5 L (35.3-44.9) % Plt Count 149 (140-400) K/mcL Neutrophils # 6.5 (1.6-8.9) K/mcL BMP 05/25/18 05:55 Sodium 139 Potassium 2.8 L Chloride 107 Carbon Dioxide 28 BUN 10 Creatinine 0.95 Glucose 125 H Calcium 8.5 L - ABG Interpretation ABG results: PT/INR, D-dimer PT 13.2 Seconds (9.4-12.1) H 05/25/18 05:55 Consult Discharge Plan - Plan Referrals: Nikhil Jeffers [Primary Care Provider] -
[2018-05-26] MEDS: *HR* LORazepam 0.5 MG TABLET PO PRN ×2 (03:14→10:52)
[2018-05-26 06:47] LABS: Basophils % 0.4 %; Eosinophils # 0.1 K/mcL (0.0-0.6); Eosinophils % 2.3 %; Hematocrit 30.4 % (35.3-44.9); Hemoglobin 10.4 g/dL (11.5-15.4); Immature Granulocytes % 0.5 % (0-4); Lymphocytes # 0.9 K/mcL (0.6-4.6); Lymphocytes % 15.7 %; Mean Corpuscular HGB Conc 34.2 g/dL (31.6-35.5); Mean Corpuscular Hemoglobin 30.4 pg (28.0-33.3); Mean Corpuscular Volume 88.9 fL (83.0-100.0); Mean Platelet Volume 10.2 fL (9.4-12.4); Monocytes # 0.6 K/mcL (0.0-1.3); Monocytes % 11.1 %; Platelet Count 171 K/mcL (140-400); Red Blood Count 3.42 M/mcL (3.82-4.97); Red Cell Distribution Width 13.2 % (11.5-14.5)
[2018-05-26] MEDS: *HR* Heparin 5,000 UNIT/ML VIAL SQ SCH (06:48)
[2018-05-26 07:01] LABS: Alanine Aminotransferase 7 Units/L (7-52); Albumin 2.9 g/dL (3.5-5.7); Albumin/Globulin Ratio 1.1 (1.1-2.2); Alkaline Phosphatase 56 Units/L (34-104); Aspartate Amino Transferase 10 Units/L (13-39); BUN/Creatinine Ratio 7 (6-26); Bilirubin,Total 0.4 mg/dL (0.3-1.0); Blood Urea Nitrogen 6 mg/dL (8-23); Calcium 8.7 mg/dL (8.6-10.3); Carbon Dioxide 29 mEq/L (23-29); Chloride 106 mEq/L (98-107); Globulin 2.6 g/dL (2.4-3.5); Glucose 112 mg/dL (70-105); Osmolality,Calculated 286 (280-300); Potassium 3.1 mEq/L (3.5-5.1); Sodium 139 mEq/L (136-145); Total Protein 5.5 g/dL (6.4-8.9); eGFR For Non-African Americans > 60 (> 60)
[2018-05-26] MEDS ORDERED: cefTRIAXone 1,000 MG in Water for inj. (sterile) 20 ML 10 ML IVP SCH (09:00)
[2018-05-26] MEDS ORDERED: Furosemide 40 MG TABLET PO ONE (09:00)
[2018-05-26] MEDS: Gabapentin 400 MG CAPSULE PO SCH (10:19)
[2018-05-26] MEDS: amLODIPine 5 MG TABLET PO SCH (10:19)
[2018-05-26] MEDS: Fluticasone Propionate Nasal 50 MCG/SPRAY BOTTLE NS SCH (10:20)
--- NOTE | 2018-05-26 12:16 | Discharge Summary ---
Addendum entered and electronically signed by Angus Sanchez MD 05/27/18 11:46: I have personally performed a face to face evaluation on this patient. I have r eviewed and agree with the care plan. History and Exam by me shows: The patient was evaluated by me yesterday but the note was not complete. This documentation is being completed today for that reason. I spoke at length with the patient and especially daughters about her concerns, anxiety, etc. The patient is on Valium and I discussed this with one of her daughters. I suggested that she consider Vistaril or other sleep aid but that Valium was not the medication which was best for her, long-term. The patient asked numerous questions and electronically deferred to her family physician in that they would be following her, long-term. Of note is the way the patient complains of shortness of breath. This is actually a deep respiration and related to her nasal symptoms. The daughter's use Flonase as an anxiolytic and this seems to work for patient, especially near bedtime. I deferred this to her family physician, as well. I informed the daughter said she will need to be treated with antibiotics because of the Escherichia coli in her urine and blood and that she should increase her water intake. The patient has been using tea on occasion but really not much water or other drinks, at all. I also suggested 500 mg of vitamin C, daily, to acidify the urine to prevent future urinary tract infections. Discussed care with other providers and/or nursing. Patient has no complaint of chest discomfort, dyspnea, orthopnea, palpitations, nausea or vomiting, constipation or diarrhea, other changes in bowel habits, difficulty with urination, rash or itching, or other new complaints, except as mentioned above. Review of systems is otherwise negative. Examination: (Except as mentioned above): General: In no apparent distress. Alert and oriented 3. Nondiaphoretic. Head: Atraumatic and normocephalic. Respiratory: No use of accessory muscles. Lungs are clear throughout. Normal airflow. Cardiovascular: Regular rate and rhythm without murmur appreciated. Abdomen: Bowel sounds are normal. The patient is doing well in terms of her tenderness which persists but is markedly improved. This is diffuse abdominal tenderness and is not localized and has no mass associated. Vertebral angle tenderness. Patient is examined upright in chair and this also limits exam. Extremities: No cyanosis clubbing or edema. Skin: Warm and non-diaphoretic with no new lesions noted. Again, will need follow-up with primary care and consideration of repeat urinalysis and/or culture. Anxiety is the principal issue in long-term care but is not the acute issue of her admission. Original Note: Orders not resulted at time of discharge: Pending orders 05/24/18 05:25 Culture,Blood [BC] Stat Date of Encounter: 05/26/18 Time of Encounter: 12:14 - Discharge Diagnosis (1) UTI (urinary tract infection) Priority: Primary Status: Acute Comments: Patient was admitted to this facility with altered mental status and being febrile on admission. During patient's workup she was discovered to have UTI with possible pyelonephritis. Urine cultures were positive. Patient was treated with Rocephin. Patient continues with low-grade fever today, but no reports of confusion. Patient denies any dysuria. Patient is being discharged to home with a prescription for Keflex for the next 10 days. Patient is recommended to follow up with her PCP within one week Qualifiers: Urinary tract infection type: site unspecified Hematuria presence: without hematuria Qualified Code(s): N39.0 - Urinary tract infection, site not specified (2) Hypertension Priority: Secondary Status: Chronic Comments: Vital signs remained stable. We will continue with home medications after discharge. Patient follow-up with PCP for further evaluation and management Qualifiers: Hypertension type: essential hypertension Qualified Code(s): I10 - Essential (primary) hypertension (3) Anxiety Priority: Secondary Status: Chronic Comments: Patient with a history of episodes of anxiety. Patient currently appears relaxed. Daughter states that patient has recently been treated at home with Ativan when necessary. States that when patient becomes anxious and becomes short of breath and has been placing oxygen on at home for relief. Daughter als o states the patient has been treated by PCP with Vistaril when necessary, but states that it makes her very drowsy. Patient's anxiety was discussed at length with daughter with recommendations for her to continue with current home medications and follow-up with PCP within the next week for further evaluation and management of her anxiety. (4) Rales Priority: Secondary Status: Acute Comments: No acute issues. Patient's lungs have remained clear to auscultation throughout. Chest x-ray was obtained which shows no infectious process. Show congested vasculature and cardiomegaly. No pulmonary edema. Patient was given Her dose of Lasix today and suggested to follow-up with PCP in one week given to her daughter Hospital course: Ms. Reed is a 87 year old female, who was found to have diminished responsiveness and complained of right-sided back pain. She was also noted to have a temperature that went to a maximum of 102 and later was 101.6 on admission. She had felt warm but really had not had chills or sweats. She had no abdominal pain. Patient was discovered to have a positive UTI with possible pyelonephritis. Patient was started on Rocephin. Currently today patient continues to have a low-grade fever at 99.1 but denies any fever or chills. Patient continues to have mild confusion and is poor historian. She has a history of anxiety and this has been treated, rather extensively. The daughter's focus on her breathing difficulty during her anxiety, and feels that she can "could not catch her breath." No c/o dyspnea while at rest. States that she places her mother on O2 for several minutes when she experiences the anxiety and the mother seems to calm. Recommend further workup and evaluation from PCP within one week of DC. Because of her ongoing anxiety, she is still treated with Ativan 0.5 mg 3 times a day as needed. She is using this about once a day, especially in the evening. She has no playing with her neurologist on June 01 for evaluation of the anxiety. Is being discharged to home with a prescription for Keflex for next 10 days. Patient is also recommended to continue with a dose of potassium 3 times a day for the next 5 days and instructions were given to daughter have patient follow- up with PCP within one weeks for further evaluation and management and have her labs repeated. Discharge discussed with: patient - Time Spent with Patient Total time spent providing and/or coordinating discharge services: Less than 30 minutes - Discharge Medications Prescriptions: Potassium Chloride 20 meq PO TID #15 tab.er.prt Home Medications: Amlodipine Besylate 2.5 mg PO DAILY 03/10/18 [History] Gabapentin [Neurontin] 400 mg PO BID 03/10/18 [History] Levothyroxine [Synthroid] 75 mcg PO DAILY 03/10/18 [History] Lovastatin 40 mg PO DAILY 03/10/18 [History] Nitroglycerin 0.4 mg SL Q5MIN PRN #25 tab.subl 03/11/18 [Rx] LORazepam [Ativan] 0.5 mg PO TID PRN 05/24/18 [History] Potassium Chloride 20 meq PO TID #15 tab.er.prt 05/26/18 [Rx] Allergies/Adverse Reactions: Allergy/AdvReac Type Severity Reaction Status Date / Time Penicillins [PCN] Allergy Hives Verified 05/24/18 03:57 Date of admission: 05/24/18 15:39 Primary care physician: Nikhil Jeffers Discharging clinician: Angus Sanchez - Constitutional Vitals: Temp Pulse Resp BP Pulse Ox 99.1 F 67 18 124/64 95 05/26/18 11:29 05/26/18 11:29 05/26/18 11:29 05/26/18 11:29 05/26/18 11:29 General appearance: Present: A&O X 2 Exam: Not to time - Head Head exam: Present: atraumatic, normocephalic - Eye Eye exam: Present: PERRL, conjuntiva pink, sclera anicteric Pupils: Present: PERRL - Neck Neck exam general surgery: Present: supple, trachea midline. Absent: lymphadenopathy - Respiratory Respiratory exam: Present: CTAB. Absent: accessory muscle use, rales, rhonchi, wheezes - Cardiovascular Cardiovascular exam: Present: RRR, +S1, +S2. Absent: diastolic murmur, gallop, rubs, systolic murmur - GI/Abdominal GI/Abdominal exam: Present: normal bowel sounds, soft, no peritoneal signs. Absent: distended, tenderness - Extremities Exam Extremities exam: Present: warm, radial pulses palpable and symmetrical. Absent: calf tenderness, cyanotic, pedal edema - Neurological Exam Neurological exam: Present: CN II-XII intact, oriented X3, no focal deficits. Absent: pronater drift, facial droop, speech deficit - Skin Skin exam: Present: dry, intact - Patient Status Disposition: Home, Self-Care Condition: Good Functional capacity at discharge: uses cane/walker Overall status at discharge: patient is progressing back to baseline - Discharge Instructions Follow Up With: Nikhil Jeffers [Primary Care Provider] - - Diet and Activity Activity: increase activity as tolerated Diet: low fat, low cholesterol, low salt diet
--- NOTE | 2018-05-26 16:53 | Electrocardiograph Report ---
[address] [address] Test Date: 2018-05-24 Pat Name: Milena Reed Department: 2000 Room: 119 Gender: F Electrical Construction Project Manager: SANTA : [id number] Requested By: Angelina Davis Order Number: [id number] Reading MD: Abdiaziz Villeda Measurements Intervals [place] Rate: 72 P: 240 NM: 296 QRS: -27 QRSD: 89 T: -13 QT: 404 QTc: 428 Interpretive Statements Sinus rhythm Artifact complicates interpretation Electronically Signed On 05-26-2018 16:52:22 EST by Abdiaziz Villeda
[2018-05-26 17:49] VITALS: BP 132/66
== END 2018-05-26 19:30 | disposition home or self-care (01) | DRG 872 ==
LOC: EMEROOGRE 03:35 → INPGRE 03:35